=== PATIENT | male | born 1960 | race Caucasian/White ===

== ENCOUNTER → 2024-02-13 10:52 | Outpatient (REF) | payer MEDICARE, SELFPAY | LOC: HWRAD 10:52 | PROVIDERS: ATTENDING PHYSICIAN Family Medicine | DX: G89.29 Other chronic pain (principal); M54.41 Lumbago with sciatica, right side | CPT/HCPCS: 72110; 72220; 73502 ==

== ENCOUNTER → 2024-04-23 10:46 | Outpatient (REF) | payer MEDICARE, SELFPAY | LOC: RAD 10:46 | PROVIDERS: ATTENDING PHYSICIAN Family Medicine | DX: M25.571 Pain in right ankle and joints of right foot (principal) | CPT/HCPCS: 73610 ==

== ENCOUNTER 2024-04-25 15:05 | Day surgery (SDC) | payer MEDICARE, SELFPAY ==
[2024-04-25] VITALS (12 sets, daily range): BP systolic 101–139; BP diastolic 65–79; BMI 33.5
--- NOTE | 2024-04-25 10:34 | ED.GENMED ---
History of Present Illness
<Chaz Avina DO - Last Filed: 04/25/24 14:02>
General
Chief Complaint: Back Pain
Source: patient and spouse
Exam Limitations: none
Time Seen by Provider: 04/25/24 09:35
Nursing documentation reviewed up to this point in time: agreed with
History of Present Illness
History of Present Illness:
63-year-old male presents emergency department complaining of increased back pain and difficulty walking. He has pain going down his right leg. His right leg feels weaker. This is been ongoing for several months, but worse over the past 1 to 2
days. Today he is having trouble urinating.
Past History
<LILLIAN Gonzalez - Last Filed: >
Past History
ED Past Medical History: Asthma, HTN, Hypercholesterolemia and Other (Kidney stones, Diverticulitis, UTI); Negative NIDDM
ED Past Surgical History: Urological
Social History
Tobacco: Former smoker
Alcohol: None
Personal:
Living: with family
Employment: Employed (contractor)
Family History
Family History: Other
Review of Systems
<DO Javier Wray Last Filed: 04/25/24 14:02>
Review of Systems
Allergies reviewed?: Yes
All Other Systems: Not applicable
Constitutional: Reports no symptoms
EENT: Reports no symptoms
Respiratory: Reports no symptoms
Cardiac: Reports no symptoms
ABD/GI: Reports no symptoms
: Reports difficulty voiding
Musculoskeletal: Reports back pain
Skin: Reports no symptoms
Neurological: Reports weakness
Endocrine: Reports no symptoms
Hematologic/Lymphatic: Reports no symptoms
Psychiatric: Reports no symptoms
Phy Exam
<Chaz Avina DO - Last Filed: 04/25/24 14:02>
Physical Exam
Physical Exam:
Physical Exam
General: Afebrile, appears uncomfortable
Neck: supple. no meningeal signs. normal posterior pharynx
Heart: s1/s2 regular rate and rhythm, no murmur. equal radial
pulses.
HEENT: Pupils equal round reactive to light, EOMI
Lungs: no acute respiratory distress. clear bilaterally
Abdomen: normal bowel sounds. not tender. no CVAT
Neuro: alert and oriented. no focal neurological deficits cranial nerves II through XII intact
Skin: no rash
Psychiatric: well kept. interactive and cooperative
Extremities: no edema. no calf tenderness. negative homans. good distal pulses
Course
<Chaz Avina, DO - Last Filed: 04/25/24 14:02>
Orders/Labs/Results
Orders:
Orders
04/25/24 10:32
Bladder Scan- Treatment ONCE
IV Insert/Care/Rem.- Treatment PRN
04/25/24 11:28
Complete Blood Count/With Diff Urgent
Comprehensive Metabolic Panel Urgent
04/25/24 11:53
Lumbar Without Contrast MR [MR Lumbar Without Contrast] Urgent
Comment:
Reason For Exam: urinary retention, low back pain, unable to walk
OK for patient to be off Cardiac Monitoring for MRI: Yes
Recent pill cam endoscopy?: No
04/25/24 13:13
Morphine Sulfate 4 mg IV NOW STA
Ondansetron Injectable [Zofran] 4 mg IV NOW STA
04/25/24 13:47
Electrocardiogram (*1) Stat
Reason for Study: PreOp
Electrocardiogram (*1) Urgent
EKG- Treatment ONCE
Abnormal Lab Results
04/25/24
11:28
WBC 11.9 H 10^3/uL
(4.8-10.8)
Abs Immat Gran (auto) 0.1 H 10^3/uL
(0-0.05)
Absolute Neuts (auto) 8.9 H 10^3/uL
(1.4-6.5)
Absolute Monos (auto) 1.0 H 10^3/uL
(0.1-0.6)
Lymphocytes % 14.2 L %
(20.5-51.1)
BUN 33 H mg/dl
(9-20)
Creatinine 1.4 H mg/dL
(0.7-1.3)
Calcium 10.8 H mg/dl
(8.4-10.2)
Total Protein 6.0 L g/dl
(6.3-8.2)
04/25/24 11:28
04/25/24 11:28
Vital Signs
Initial and Last Documented VS:
Initial Vital Signs
Temp Pulse Resp BP Pulse Ox
98.0 F 79 16 116/72 96
04/25/24 09:34 04/25/24 09:34 04/25/24 09:34 04/25/24 09:34 04/25/24 09:34
Last Documented Vital Signs
Temp Pulse Resp BP Pulse Ox
98.0 F 78 10 110/65 97
04/25/24 09:34 04/25/24 12:00 04/25/24 12:00 04/25/24 12:00 04/25/24 12:00
<LILLIAN Gonzalez - Last Filed: >
Orders/Labs/Results
Orders:
Orders
04/25/24 10:32
Bladder Scan- Treatment ONCE
IV Insert/Care/Rem.- Treatment PRN
04/25/24 11:28
Complete Blood Count/With Diff Urgent
Comprehensive Metabolic Panel Urgent
04/25/24 11:53
Lumbar Without Contrast MR [MR Lumbar Without Contrast] Urgent
Comment:
Reason For Exam: urinary retention, low back pain, unable to walk
OK for patient to be off Cardiac Monitoring for MRI: Yes
Recent pill cam endoscopy?: No
04/25/24 13:13
Morphine Sulfate 4 mg IV NOW STA
Ondansetron Injectable [Zofran] 4 mg IV NOW STA
04/25/24 13:47
Electrocardiogram (*1) Stat
Reason for Study: PreOp
Electrocardiogram (*1) Urgent
EKG- Treatment ONCE
Abnormal Lab Results
04/25/24
11:28
WBC 11.9 H 10^3/uL
(4.8-10.8)
Abs Immat Gran (auto) 0.1 H 10^3/uL
(0-0.05)
Absolute Neuts (auto) 8.9 H 10^3/uL
(1.4-6.5)
Absolute Monos (auto) 1.0 H 10^3/uL
(0.1-0.6)
Lymphocytes % 14.2 L %
(20.5-51.1)
BUN 33 H mg/dl
(9-20)
Creatinine 1.4 H mg/dL
(0.7-1.3)
Calcium 10.8 H mg/dl
(8.4-10.2)
Total Protein 6.0 L g/dl
(6.3-8.2)
04/25/24 11:28
04/25/24 11:28
Vital Signs
Initial and Last Documented VS:
Initial Vital Signs
Temp Pulse Resp BP Pulse Ox
98.0 F 79 16 116/72 96
04/25/24 09:34 04/25/24 09:34 04/25/24 09:34 04/25/24 09:34 04/25/24 09:34
Last Documented Vital Signs
Temp Pulse Resp BP Pulse Ox
98.0 F 78 10 110/65 97
04/25/24 09:34 04/25/24 12:00 04/25/24 12:00 04/25/24 12:00 04/25/24 12:00
<Chaz Avina, DO - Last Filed: 04/25/24 14:02>
MDM/Problems Addressed
Differential Diagnosis Includes:
Cauda equina, lumbosacral disc retrusion
MDM/Problems Addressed:
63-year-old male with lumbosacral disc retrusion, intractable back pain. Discussed with neurosurgery, who will operate after medical clearance.
Chronic conditions affecting care: HTN
Acute Exacerbation and/or Progression of Chronic Illness: HTN
<Chaz Avina, DO - Last Filed: 04/25/24 14:02>
*Radiology
Radiology exam reviewed: radiology read reviewed (MRI shows large L5-S1 lumbosacral disc protrusion, no cauda equina)
*Pulse Oximetry
Patient hypoxic: no
*EKG
Interpreted by ED Provider?: Yes
EKG Intrepretation Date: 04/25/24
EKG Intrepretation Time: 13:56
Interpretation: abnormal
Comparison EKG: changes noted
Heart Rate: 75
Rate: normal
Rhythm: sinus
Lagrange: normal axis
Interval: normal interval
QRS Pattern: right bundle branch block
Ischemia: no ischemia
*Pastry Finisher Interpretation
Rate: Pastry Finisher- N/A
*Critical Care Note
Total Time (30-74mins, 75-104mins- exclusive of procedures): Not Applicable
Data Reviewed
Review of Other/Old Records Reveals: Radiology Studies (Prior MRI at [facility] shows L5-S1 right paracentral disc protrusion)
<Chaz Avina, DO - Last Filed: 04/25/24 14:02>
Patient Management
Social determinants of health affecting care: Living situation
Discussion with other providers: Hospitalist and [employer] (Neurosurgery Dr. Cunningham)
Escalation/DeEscalation of care consider admission/obs:
Admit indicated
ED Attending Note
<LILLIAN Gonzalez - Last Filed: >
-
Portions of this chart may have been created with voice recognition software.� Occasional wrong word or��sound alike� substitutions may have occurred due to the inherent limitations of voice recognition software.
Discharge Plan
Departure
Patient Disposition: Admit
Date of Disposition: 04/25/24
Time of Disposition: 13:39
Admit to: Med/Surg
Presentation/result/management discussed w/ accepting MD/DO: Hospitalist
Patient with high blood pressure during this ER visit?: Yes
Condition: Fair
Discharge Problem:
Protrusion of intervertebral disc of lumbosacral region
Prescriptions:
No Action
clonazepam 0.5 MG tablet
0.5 mg PO Q6HPRN PRN (Reason: anxiety)
duloxetine 60 MG capsule,delayed release(DR/EC)
60 mg PO DAILY
Referrals:
Billie Shukla MD [Family Provider] -
Interventions
Interventions:
*Risk Screen - Suicide Last Done: 04/25/24 09:34
*General Assessment Last Done: 04/25/24 09:34
*Neglect/Abuse Screening Last Done: 04/25/24 09:34
ED- Fall Risk Assessment Last Done: 04/25/24 11:46
*ED COVID-19 Vaccine History Last Done: 04/25/24 09:34
ED-Musculoskeletal Assessment Last Done: 04/25/24 11:35
Discharge Date and Time
Print Language: [facility]
[2024-04-25 11:43] LABS: % Basophils 0.4 % (0-2); % Eosinophils 1.3 % (0-6); % Immature Granulocytes 0.4 % (0-0.5); % Lymphocytes 14.2 % (20.5-51.1); % Monocytes 8.7 % (1.7-9.3); Absolute Basophils 0.1 10^3/uL (0-0.2); Absolute Eosinophils 0.2 10^3/uL (0-0.7); Absolute Immature Granulocytes 0.1 10^3/uL (0-0.05); Absolute Lymphocytes 1.7 10^3/uL (1.2-3.4); Absolute Neutrophils 8.9 10^3/uL (1.4-6.5); Hematocrit 47.9 % (39.0-52.0); Mean Corp Hgb Conc. 33.4 g/dL (33.0-37.0); Mean Corpuscular Hgb 30.1 pg (27.0-31.0); Nucleated Red Blood Cells % 0 % (-); Platelet Count 262 10^3/uL (130-400); Red Blood Cell Count 5.32 10^6/uL (4.70-6.10); Red Cell Dist. Width 13.4 % (11.5-14.5); White Blood Cell Count 11.9 10^3/uL (4.8-10.8)
[2024-04-25 12:02] LABS: ALT (SGPT) 25 U/L (0-50); AST (SGOT) 25 U/L (17-59); Albumin 3.9 g/dl (3.5-5.0); Alkaline Phosphatase 83 U/L (38-126); Blood Urea Nitrogen 33 mg/dl (9-20); Calcium 10.8 mg/dl (8.4-10.2); Carbon Dioxide 27 mmol/L (22-30); Chloride 105 mmol/L (98-107); Estimated Creatinine Clearance 65 ml/min; Glucose 99 mg/dl (70-99); Potassium 4.6 mmol/L (3.5-5.1); Sodium 142 mmol/L (135-145); Total Bilirubin 1.1 mg/dl (0.2-1.3); eGFR 55.78
[2024-04-25] MEDS: ZOFRAN 4 MG IV (13:30)
[2024-04-25] MEDS: MORPHINE SULFATE 4 MG IV ×3 (13:30→22:14)
--- NOTE | 2024-04-25 14:11 | HPS.HSE ---
Addendum entered and electronically signed by Caitie Bryan MD 04/25/24 20:30:
Discussed with cardiology who stated that incomplete right bundle branch block was present previously. No further workup needed. Patient can proceed to surgery.
Original Note:
Family Physician
-
Family Physician: Billie Shukla
Chief Complaint
-
Lumbar back pain unable to urinate
History of Present Illness
63-year-old male complaining of increased back pain with radiation to his right lateral leg leg to ankle and difficulty walking. He reports this has been ongoing for several months but worsened over the past 1 to 2 days. His states he is been
using a walker at home for the past few weeks. He does reports not being able to void since last night. He had bladder scan in the ER showing 324 cc. He denies dysuria, frequency, flank pain, fever, chills. He denies headache, sore throat,
fever, chills, chest pain, palpitations, shortness breath, cough, abdominal pain, nausea, vomiting, diarrhea.
He has past medical history asthma mild, ex-smoker, HTN, HLD, moderate left ventricular hypertrophy, anxiety, depression, seasonal allergies, renal calculi, obesity
Medical History
Past Medical History
Past Medical History: Reports Other
Additional Past Medical History:
asthma
ex-smoker
HTN
HLD,
anxiety
depression
seasonal allergies
renal calculi
left ventricular hypertrophy
Past Surgical History: Reports Other
Additional Past Surgical History:
Tonsillectomy
Herniated testicle repair
Kidney stone removal x 7
Social History
Tobacco: Former Smoker
Alcohol: None
Drug: None
Personal:
Living: With Family
Employment: Retired (drywall installer)
Family History
Family History: Other (Mother old age history of hypertension, depression father age 70 [place])
Allergies / Home Medications
Allergies reflects when Allergies were last updated in [facility].
Home Medications with original date entered in [facility]
Allergy/Medication List:
Allergies
Allergy/AdvReac Type Severity Reaction Status Date / Time
environmental Allergy congestion Uncoded 11/02/20 18:52
Home Medications
clonazepam 0.5 mg tablet 0.5 mg PO BID 08/25/18
duloxetine 60 mg capsule,delayed release 120 mg PO DAILY 08/25/18
acetaminophen 325 mg tablet (Tylenol) 650 mg PO Q4HPRN PRN mild pain 04/25/24
amlodipine 5 mg tablet 5 mg PO HS 04/25/24
atorvastatin 20 mg tablet (Lipitor) 20 mg PO DAILY 04/25/24
bupropion HCl 200 mg tablet,12 hr sustained-release (Wellbutrin SR) 200 mg PO DAILY 04/25/24
metoprolol succinate 25 mg tablet,extended release 24 hr (Toprol XL) 37.5 mg PO DAILY 04/25/24
Review of Systems
-
History Source: Patient and Family ( at bedside)
A 12 point ROS was completed and negative except as noted: Yes
Constitutional: Denies Fever, Fatigue or Chills
EENT: Denies Sore Throat or Runny Nose
Respiratory: Denies Cough or Trouble Breathing
Cardiac: Denies Chest Pain, Diaphoresis, Palpitations or Syncope
Abdomen/GI: Denies Abdominal Pain, Nausea, Vomiting, Diarrhea, Constipated, Bloody Stools or Black Stools
: Reports Difficulty Voiding (Urine retention since last evening 04/24/2024)
Musculoskeletal: Reports Other (Lower lumbar back pain radiating down right lateral thigh to ankle sensation intact motor movement intact 5 out of 5 bilateral); Denies Joint Pain or Edema
Skin: Denies Itching or Rash
Neurological: Denies Dizzy, Headache, Weakness or Numbness
Endocrine: Reports No Symptoms
Hematologic/Lymphatic: Reports No Symptoms
Psych: Reports Calm
Physical Exam
Vital Signs
Vital Signs
Temp Pulse Resp BP Pulse Ox
98.0 F 78 10 110/65 97
04/25/24 09:34 04/25/24 12:00 04/25/24 12:00 04/25/24 12:00 04/25/24 12:00
Physical Exam
General: Comfortable, Conversant and Obese; No Fever or Chills
HEENT: NormoCephalic, Anicteric, Moist mucous membranes, PERRLA, [place] Conjunctivae and No Ptosis
Respiratory: Clear; No Wheezes, Rales or Rhonchi
Cardiac: S1/S2 and Regular Rhythm; No Murmur, Rub, Gallop or Peripheral Edema
Breast: Deferred by me
GI: Soft, Non Tender, Non Distended, Normal Bowel Sounds and No Hepatosplenomegaly
Rectal: Deferred by Provider
Genito-urinary: No costovertebral tender
Musculoskeletal: No Clubbing, No Cyanosis, No Edema and Other (Lower lumbar back pain radiating down right lateral thigh to ankle sensation intact motor movement intact 5 out of 5 bilateral)
Skin: Warm and Dry; No Rash or Jaundice
Neuro: AO x 3, No Motor Deficits, Nonfocal/grossly intact, Cranial Nerves Intact and No Sensory Deficits; No Slurred Speech, Facial Droop or Tremors
Psych: Calm
Laboratory Results
-
04/25/24 11:28
04/25/24 11:28
Laboratory Results
Total Bilirubin 1.1 mg/dl (0.2-1.3) 04/25/24 11:28
AST 25 U/L (17-59) 04/25/24 11:28
ALT 25 U/L (0-50) 04/25/24 11:28
Alkaline Phosphatase 83 U/L (38-126) 04/25/24 11:28
Impression/Plan
-
Impression/plan:
Admit to MedSurg
#Intractable back pain 2/2 large right central disc protrusion with S1 nerve root impingement
-Consult neurosurgery
-N.p.o. after midnight for the OR tomorrow
-IV morphine as needed, IV Zofran
-PT/OT/case management consult
MRI lumbar spine: L5-S1, a large right central disc protrusion causing moderate impingement on the traversing right S1 nerve root in the lateral recess
#Urinary retention likely secondary to S1 nerve root impingement versus BPH
-Postvoid bladder scan 324 cc
-Will insert Victoria catheter due to urine retention
Creat 1.4 prior baseline 1.3 in 2020
-IV NSS
-Check UA, [employer]
#Incomplete RBBB likely new
#Hx left ventricular hypertrophy
-HR 75 bpm, no chest pain
-Patient follows with [facility]
-Recommend follow-up with [facility] for possible new RBBB
EKG: NSR 75 bpm, QTc 464 MS, incomplete RBBB new since 2014
2D echo 06/24/2022: EF 65 to 70%, moderate LVH, trace AR, pulm arterial pressure 20-25 mmHg
#HTN-benign
BP 110/65
-Continue amlodipine 5 mg at bedtime with hold parameters, Toprol XL 37.5 mg a.m. with hold parameters
#HLD
-Continue Lipitor 20 mg daily
#Anxiety/Depression
-Continue Wellbutrin 200 mg daily, clonazepam 0.5 mg twice daily, duloxetine 120 mg daily
#Asthma-mild was were conduced from [facility]
# Ex-smoker
-Quit 40 years ago
#Obesity due to excess calorie consumption�BMI 34.3
-Affects all aspects of care
-Weight loss recommended
-Low-fat diet
Other medical history:
Seasonal allergies
renal calculi with lithotripsy x 7
DVT prophylaxis
Full code
--- NOTE | 2024-04-25 15:01 | W.PN.UPDATE ---
Update Note
Progress Note Update
This is an addendum to the H&P written by Tracy Godinez on 04/25/2024. Patient seen and examined independently with [employer].
63-year-old male past medical history of asthma, hypertension, hypercholesteremia, kidney stones, presenting with increased back pain with pain radiating down right leg with weakness ongoing for months and difficulty ambulating as well as difficulty
urinating.
Lumbar MRI shows large right central disc protrusion causing moderate impingement on the transversing right S1 nerve root in the lateral recess. Labs show mild DANE likely related to urinary retention from disc herniation. Bladder scan showed 324
cc of urine. Patient for surgery tomorrow.
Victoria catheter to be placed. Check UA. Gentle IV fluids. EKG shows incomplete right bundle branch block which is new although patient without any cardiac complaints. N.p.o. past midnight. Neurosurgery consulted for surgery tomorrow. Tylenol,
morphine for pain.
[2024-04-25 15:46] LABS: Urine Albumin Trace (Neg - Trace); Urine Bilirubin 1+ (Negative); Urine Character Very Cloudy (Clear); Urine Color Yellow; Urine Glucose Negative (Negative); Urine Ketone Trace (Negative); Urine Leukocyte 1+ (Negative); Urine Nitrite Positive (Negative); Urine Occult Blood 4+ (Negative); Urine Urobilinogen Negative (Neg - 1+)
[2024-04-25 15:58] LABS: Urine Calcium Oxalate Crystals Present; Urine Red Blood Cell 90-100 /HPF (0-2); Urine Squamous Cell 0-2 /LPF (Few); Urine White Cell 0-2 /HPF (0-5)
[2024-04-25 15:59] LABS: Urine Bacteria Many (Negative)
--- NOTE | 2024-04-25 17:18 | CON.NS ---
Consultation
-
Date/Time Consultation Performed: 04/25/2024; 17:20
Performing Provider: Marisa
Chief Complaint
History of Present Illness
This is a neurosurgical consultation on a 63-year-old gentleman who presents with several month history of significant right lower extremity radiculopathy. He was initially evaluated by his primary care doctor, MRI was ordered, and he underwent a
course of physical therapy which she was unable to tolerate. He also reports that he and epidural steroid injection to the spine 1 week prior, with minimal pain relief.
He presented as he had worsening pain overnight, and difficulty ambulating and bearing weight on the right leg. He was also reported to have acute urinary retention of 325 mL. Given this, he had a new MRI scan which demonstrated persistent, but
slightly larger right L5-S1 disc herniation.
Reports the pain primarily starts in his right buttock area, radiates down the posterior aspect of his right leg, right calf, and into the lateral aspect of his right foot.
Review of Systems
-
10 point review of systems was performed which includes constitutional, ENT, cardiovascular, respiratory, GI, , endocrinologic, hematologic, neurologic, musculoskeletal, and was negative, except for stated in HPI.
Medication and Allergies
Home Medications
Home Medications
�Medication �Instructions �Recorded
clonazepam 0.5 mg tablet 0.5 mg PO BID 08/25/18
duloxetine 60 mg capsule,delayed 120 mg PO DAILY 08/25/18
release
acetaminophen 325 mg tablet 650 mg PO Q4HPRN PRN mild pain 04/25/24
(Tylenol)
amlodipine 5 mg tablet 5 mg PO HS 04/25/24
atorvastatin 20 mg tablet (Lipitor) 20 mg PO DAILY 04/25/24
bupropion HCl 200 mg tablet,12 hr 200 mg PO DAILY 04/25/24
sustained-release (Wellbutrin SR)
metoprolol succinate 25 mg 37.5 mg PO DAILY 04/25/24
tablet,extended release 24 hr
(Toprol XL)
Allergies
Allergies
Allergy/AdvReac Type Severity Reaction Status Date / Time
environmental Allergy congestion Uncoded 11/02/20 18:52
Physical Exam
-
Exam:
Awake, alert, no apparent distress.
Cranial nerves II through XII are gross intact
Motor: 5/5 strength bilaterally lower extremities, except 4/5 strength in right hamstring.
Sensation to light touch intact bilaterally in upper and lower extremities.
Head is normocephalic atraumatic
Neck is supple
breathing nonlabored
Cardiac: Regular rate and pulse.
Abdomen is soft
Extremities: Warm and dry
Problems
-
Problem Status Onset Code
Protrusion of intervertebral disc of lumbosacral region M51.27
Assessment / Plan
-
This is a 63-year-old gentleman that presents with increased back pain, with worsening right lower extremity radiculopathy now with bladder scan demonstrating urinary retention of 324 cc.
MRI of the lumbar spine performed today was reviewed, and compared with the previous MRI performed at [facility] on 04/10/2024. There is persistent, but slightly larger right L5-S1 disc herniation with severe compression of the right S1
nerve root. He is trialed pain control, physical therapy, and epidural steroid injection without significant relief.
He is unable to ambulate at home and bear weight on the right leg.
Extensive discussion was held with patient, and family bedside. Given his intractable right lower extremity symptoms, and MRI findings, he is deemed a candidate for right L5-S1 microdiscectomy.
I thoroughly discussed the indications for the surgery, nonoperative options, risks, benefits, and risks include, but are not limited to bleeding, infection, injury to arteries, veins, nerves, CSF leak, disc reherniation, need for further surgery in
the future, failure to improve symptoms, worsening of symptoms. He and his family expressed understanding of this, and gave consent to proceed. Patient is made n.p.o. after midnight. Plan to proceed to the operating room tomorrow a.m.
Please ensure patient has appropriate medical clearance for anesthesia for tomorrow.
[2024-04-25] MEDS: NSS 1000 IV (18:16)
--- NOTE | 2024-04-25 18:43 | W.PN.UPDATE ---
Update Note
Progress Note Update
Patient voiding on own to 50 mL with postvoid residual 142 at 1543. Victoria was not placed in ER. Will hold Victoria catheter and continue with bladder scan protocol
[2024-04-25] MEDS: HEPARIN 5000 UNITS SC (19:58)
[2024-04-25] MEDS: KLONOPIN 0.5 MG PO (19:58)
[2024-04-25] MEDS: NORVASC 5 MG PO (22:20)
[2024-04-26] VITALS (21 sets, daily range): BP systolic 88–131; BP diastolic 46–79; PULSE 83; O2SAT 96
[2024-04-26] MEDS: MORPHINE SULFATE 4 MG IV (04:28)
--- NOTE | 2024-04-26 09:53 | OR.RPT ---
Operative Report
Operative Report
Date of procedure: 04/26/2024
Surgeon: Yuli Cunningham MD
Dictated by: Yuli Cunningham MD
Procedure:
1. Right L5-S1 microdiscectomy
2. Utilization of intraoperative fluoroscopy
3. Utilization of microscope for microdissection
Preoperative diagnosis: Right L5-S1 disc herniation
Postoperative diagnosis: Same
Boring Machine Set Up Operator Jig:
Anesthesiologist: Renee
Types of anesthesia:
1. General
2. Local
Estimated blood loss: 30 cc
Specimens: None
Intraoperative findings: Right focal L5-S1 disc herniation with compression of the right S1 nerve root within the axilla.
Complications: None
Disposition: Extubated and transferred to the PACU and then to the floor stable condition.
Indications for procedure:
This is a 63-year-old gentleman who presented with severe onset of right lower extremity radiculopathy. He was diagnosed with a right L5-S1 disc herniation several weeks ago, after suffering with severe radicular symptoms x 2 months. He trialed
physical therapy, as well as undergone a epidural steroid injection without any significant relief. He presents to the hospital with difficulty with ambulating and standing, and inability to perform his activities of daily living. He had a
follow-up MRI scan which demonstrated a larger right L5-S1 disc herniation.
He did report some difficulty with urination was noted to be retaining urine with approximate 324 cc in his bladder. Given his intractable pain, and imaging demonstrating increase in his right L5, S1 discrimination, he was deemed a candidate for
microdiscectomy.
Procedure in detail: Patient seen the preoperative holding area where consents were obtained. All Shannon questions or concerns at the patient and the right side were answered addressed. Patient was Joyce to the operating room and induced under
general attitude to anesthesia. Patient was then carefully positioned from the supine position to the prone position onto the Teddy table. Special care was taken to ensure that all pressure points including his eyes, chin, bilateral ulna, chest,
groin, knees were appropriately padded. Following this time sensory was placed over the gluteal fold along sacral spine was then shaved. Preoperative x-rays were taken to localize the L5-S1 level. This area was then prepped and draped in standard
surgical fashion. After appropriate timeout was obtained, local anesthetic was then infiltrated to the marked incision.
Using template, an incision was made through the skin and Bovie electrocautery was utilized to dissect down to the lumbodorsal fascia. The lumbodorsal fascia was then dissected and opened on the right side of the spinous processes and subperiosteal
dissection was then carried out using Bovie electrocautery. The lamina on the right side of L5, and S1 was dissected, and the plan for forward dissector was utilized and intraoperative x-rays were utilized to localize and confirmed that this was
the L5-S1 level. Following this the Chow retractors were placed, the microscope was brought in for additional dissection.
Using the [employer] match head bur, a laminoforaminotomy was made removing the inferior aspect of the L5 lamina, and the superior aspect of the S1 lamina. The ligamentum flavum was encountered, this was removed using Kerrison punch rongeur's. At
this point epidural fat was encountered, as well as the lateral aspect of the thecal sac, and the S1 nerve root. Using a [place] 4 dissector, careful dissection was then carried out lateral to the S1 nerve root, and a large blisterlike bulge was
palpated. This was then opened using an 11 blade, revealing multiple free fragments of this material. A large fragment was also teased out using pituitary rongeur's. At this point, as outpatient curette was utilized to remove any additional disc
material medially. The nerve root appeared to be significantly lax at this point. Using pituitary rongeur's, additional freed this material within the superficial aspect of the disc base was also encountered and this was removed. At this point,
there is no evidence of additional material, and the nerve appeared to be significantly decompressed. The wound was then thoroughly irrigated with irrigation, and Surgiflo hemostatic material was then placed within the epidural space.
Local anesthetic was infiltrated to the subfascial musculature, retractors were removed. The fascia was then reapproximated using interrupted 0 Vicryl sutures. The subcutaneous fatty tissue was reapproximate using an additional layer of 2-0 Vicryl
sutures in interrupted fashion. And lastly, the dermis and epidermis was then reapproximated using interrupted inverted 3-0 Vicryl sutures. Mastisol, and Steri-Strips were utilized to further reinforce the skin closure. The wound was then dressed
using Telfa and Tegaderm. Patient was then carefully positioned for the prone position to the supine position. He was then extubated and transferred to the PACU in stable condition. All needle sponge counts were correct at the end the procedure.
No complications were encountered. The patient's was made aware of the intraoperative, as well as key and postoperative course expected, to which she expressed understanding.
--- NOTE | 2024-04-26 11:28 | W.PN.HOSP.TC ---
Today's Communication/Plan
-
Resume diet
PT/OT
Continuous pulse ox
Assessment / Plan
Assessment / Plan
Gen-sleepy but arousable, NAD, obese
HEENT-NC, AT, anicteric, clear oral mm
Neck-supple
CV-reg, no M, +S1/S2
Lungs-clear B/L
Abd-soft, NT, ND
Ext-no edema
Musculoskeletal-no cyanosis, clubbing
Skin-warm and dry
Acute lumbar radiculopathy -presentation with pain down the right leg. Etiology is herniated L5-S1 vertebral disc as noted on MRI. Underwent successful microdiscectomy 04/26 by neurosurgery.
Resume diet today. PT/OT.
Slow to wake up from anesthesia today, suspect underlying BRENNAN. Continuous pulse oximetry ordered. Will need outpatient sleep study if not already.
Intractable pain syndrome -due to above. Neurosurgery recommends Medrol Dosepak and muscle relaxants, analgesics postop. Neurosurgery is okay with discharge in the next 24 hours. Outpatient follow-up.
Acute urinary retention -PVR 324 cc in the emergency room. Repeat bladder scan was 153 mL. Did not require Victoria catheter.
Urinalysis does show hematuria. White blood cell count is 0. Will need outpatient follow-up with urology.
Prerenal azotemia -mild elevation of BUN and creatinine noted. Labs pending for today.
Essential hypertension -controlled.
Hyperlipidemia -atorvastatin.
Anxiety/depression -he is on clonazepam, Wellbutrin, duloxetine at home.
Obesity due to excess calories
Full code
Anticipated Discharge: Within 24 hours
Subjective/Interval History
-
Date of Service: April 26, 2024
Patient seen and examined in the recovery room. Still somewhat groggy from anesthesia.
Objective Data
-
Labs:
Laboratory Results
04/26/24
06:00
WBC Pending
Hgb Pending
Hct Pending
Plt Count Pending
Sodium Pending
Potassium Pending
Chloride Pending
Carbon Dioxide Pending
BUN Pending
Creatinine Pending
Glucose Pending
Calcium Pending
Total Bilirubin Pending
AST Pending
ALT Pending
Alkaline Phosphatase Pending
Vital Signs:
Vital Signs
Temp Pulse Resp BP Pulse Ox
97.4 F 85 17 107/74 97
04/26/24 10:42 04/26/24 11:00 04/26/24 11:00 04/26/24 11:00 04/26/24 11:00
I&O
04/25/24 04/26/24 04/27/24
06:59 06:59 06:59
Intake Total 800 / 800
Output Total 400 / 400
Balance 400 / 400
Review of Systems
-
History Source: Patient
All other systems: Reviewed and negative
[2024-04-26] MEDS: NSS 1000 IV (11:49)
[2024-04-26 12:08] LABS: % Basophils 0.2 % (0-2); % Eosinophils 0.2 % (0-6); % Immature Granulocytes 0.5 % (0-0.5); % Lymphocytes 5.6 % (20.5-51.1); % Monocytes 2.2 % (1.7-9.3); % Neutrophils 91.3 % (42.2-75.2); Absolute Immature Granulocytes 0.1 10^3/uL (0-0.05); Absolute Lymphocytes 0.5 10^3/uL (1.2-3.4); Absolute Monocytes 0.2 10^3/uL (0.1-0.6); Absolute Neutrophils 8.8 10^3/uL (1.4-6.5); Hematocrit 45.6 % (39.0-52.0); Hemoglobin 14.8 g/dL (13.0-18.0); Mean Corp Hgb Conc. 32.5 g/dL (33.0-37.0); Mean Corpuscular Volume 89.2 fL (80.0-94.0); Mean Platelet Volume 9.3 fL (7.4-10.4); Nucleated Red Blood Cells % 0 % (-); Platelet Count 240 10^3/uL (130-400); Red Blood Cell Count 5.11 10^6/uL (4.70-6.10); Red Cell Dist. Width 13.4 % (11.5-14.5); White Blood Cell Count 9.7 10^3/uL (4.8-10.8)
[2024-04-26] MEDS: NSS IV (12:22)
[2024-04-26] MEDS: KLONOPIN PO (12:50)
[2024-04-26] MEDS: HEPARIN SC (12:50)
--- NOTE | 2024-04-26 13:02 | SUR.PHASEI ---
patient in pacu delayed awakening - received narcan in OR - airway out in pacu - sleeps continuously if undisturbed, vss, with O2 sats usually 92 - 97%. some drops to 88% - Dr Rubin updated - continuous pulse oximetry ordered for floor. When
awake - follows commands, flat affect, generalized weakness,denies pain. labs drawn that were not drawn at 6am and sent. updated. left hand cold on arrival - strong radial pulse, warmed with warm blanket.
--- NOTE | 2024-04-26 13:07 | PTCARENOTE ---
Patient received from PACU in bed; IVF infusing; Surgical site medial lower back clean, dry and intact; Patient drowsy but awakens to voice and tactile stimulation; Spouse at bedside; Continuous pulse ox in place, oxygen saturation 93-94% on 3L
nasal cannula; Bilateral radial pulse +2 to palpation, bilateral pedal pulse +2 to palpation; Weak hand grasp bilaterally; Bilateral plantar flexion and dorsiflexion weak; Patient denies numbness and/or tingling to all extremities; Patient states
pain is mild and tolerable for him; Patient denies nausea/vomiting; Call leone within reach; Bed in lowest position, wheels locked; Assessment ongoing
[2024-04-26 13:16] LABS: Hepatitis C Antibody Negative (Negative)
[2024-04-26] MEDS: WELLBUTRIN SR (12 hour sustained release) PO (13:20)
[2024-04-26] MEDS: TOPROL XL PO (13:20)
[2024-04-26] MEDS: CYMBALTA DELAYED RELEASE PO (13:20)
[2024-04-26] MEDS: LIPITOR PO (13:20)
[2024-04-26 13:53] LABS: ALT (SGPT) 22 U/L (0-50); AST (SGOT) 26 U/L (17-59); Albumin 3.9 g/dl (3.5-5.0); Alkaline Phosphatase 88 U/L (38-126); Blood Urea Nitrogen 34 mg/dl (9-20); Carbon Dioxide 18 mmol/L (22-30); Chloride 106 mmol/L (98-107); Estimated Creatinine Clearance 69 ml/min; Glucose 103 mg/dl (70-99); Potassium 4.7 mmol/L (3.5-5.1); Sodium 140 mmol/L (135-145); Total Bilirubin 0.8 mg/dl (0.2-1.3); Total Protein 5.8 g/dl (6.3-8.2); eGFR > 60.00
--- NOTE | 2024-04-26 14:26 | CM ---
Patient seen resting, initial assessment completed by bedside. Patient resides in a multiple story home, one step to enter. Patient has a walker and cane at home, denies VN or SNF history. Patient PCP Billie Shukla, pharmacy [facility]
[place]. Patient confirms prescription coverage through [facility]. CM will follow for PT/OT recommendations for VN needs.
Plan; home with , watch for VN needs upon discharge.
[2024-04-26] MEDS: ANCEF 5 IV ×2 (15:38→23:32)
[2024-04-26] MEDS: TYLENOL 1000 MG PO ×2 (15:39→21:00)
[2024-04-26] MEDS: ROXICODONE 5 MG PO (18:10)
[2024-04-26] MEDS: HEPARIN 5000 UNITS SC (20:48)
[2024-04-26] MEDS: COLACE 100 MG PO (20:48)
[2024-04-26] MEDS: SENOKOT 17.2 MG PO (20:48)
[2024-04-26] MEDS: KLONOPIN 0.5 MG PO (20:48)
[2024-04-26] MEDS: NORVASC 5 MG PO (21:00)
[2024-04-27] MEDS: NSS 1000 IV (01:30)
[2024-04-27] MEDS: TYLENOL 1000 MG PO ×2 (03:34→09:12)
[2024-04-27 03:55] VITALS: BP 135/78
[2024-04-27 07:47] VITALS: BP 167/91
--- NOTE | 2024-04-27 08:13 | W.PN.HOSP.TC ---
Today's Communication/Plan
-
Discharge
Assessment / Plan
Assessment / Plan
Gen-sleepy but arousable, NAD, obese
HEENT-NC, AT, anicteric, clear oral mm
Neck-supple
CV-reg, no M, +S1/S2
Lungs-clear B/L
Abd-soft, NT, ND
Ext-no edema
Musculoskeletal-no cyanosis, clubbing
Skin-warm and dry
Acute lumbar radiculopathy -presentation with pain down the right leg. Etiology is herniated L5-S1 vertebral disc as noted on MRI. Underwent successful microdiscectomy 04/26 by neurosurgery. PT recommends home therapy.
Intractable pain syndrome -due to above. Neurosurgery recommends Medrol Dosepak and muscle relaxants, analgesics postop. Neurosurgery is okay with discharge today. Outpatient follow-up.
Acute urinary retention -PVR 324 cc in the emergency room. Repeat bladder scan was 153 mL. Did not require Victoria catheter.
Urinalysis does show hematuria. White blood cell count is 0. He does have a urologist, Dr. Buck. Discussed with patient to follow-up as an outpatient for evaluation of hematuria. He does have a history of nephrolithiasis. Last episode was 3
years ago.
Prerenal azotemia -mild elevation of BUN and creatinine noted. Labs pending for today.
Essential hypertension -controlled.
Hyperlipidemia -atorvastatin.
Anxiety/depression -he is on clonazepam, Wellbutrin, duloxetine at home.
BRENNAN -spoke with , patient did have a CPAP machine but it was removed due to noncompliance. He was scheduled for repeat sleep study but ended up in the hospital. Recommend rescheduling. Discussed with .
Obesity due to excess calories
Full code
Dispo - medically stable for discharge home today with home care. Follow-up as outpatient. Updated on the phone. All questions answered.
32-minute spent in discharge process.
Anticipated Discharge: Today
Subjective/Interval History
-
Date of Service: April 27, 2024
Patient seen and examined. Feels much better. Denies radicular pain. Mild soreness of his lower back. No complaints.
Objective Data
-
Labs:
Laboratory Results
04/27/24
05:32
WBC Pending
Hgb Pending
Hct Pending
Plt Count Pending
Sodium Pending
Potassium Pending
Chloride Pending
Carbon Dioxide Pending
BUN Pending
Creatinine Pending
Glucose Pending
Calcium Pending
Total Bilirubin Pending
AST Pending
ALT Pending
Alkaline Phosphatase Pending
Vital Signs:
Vital Signs
Temp Pulse Resp BP Pulse Ox
98.2 F 92 20 167/91 98
04/27/24 07:47 04/27/24 07:47 04/27/24 07:47 04/27/24 07:47 04/27/24 07:47
I&O
04/26/24 04/27/24 04/28/24
06:59 06:59 06:59
Intake Total 800 / 800 100 / 100
Output Total 400 / 400 975 / 975
Balance 400 / 400 -875 / -875
Review of Systems
-
History Source: Patient
All other systems: Reviewed and negative
--- NOTE | 2024-04-27 08:19 | W.DS.TRANS ---
DC Summary - Mac Developer
-
Discharge Instructions:
Discharge Diagnosis/Procedures Lumbar radiculopathy, hematuria
Diet Regular
Activity As tolerated
Driving Restrictions As prior to admission
Bathing Restrictions None
Instructions:
Stand-Alone Forms:
Changes to Home Medications: No
Discharge Medications:
DC Medications w/original date entered in [employer]
clonazepam 0.5 mg tablet 0.5 mg PO BID Mental Health/Anxiety 08/25/18
duloxetine 60 mg capsule,delayed release 120 mg PO DAILY Mental Health/Anxiety 08/25/18
acetaminophen 325 mg tablet (Tylenol) 650 mg PO Q4HPRN PRN mild pain 04/25/24
amlodipine 5 mg tablet 5 mg PO HS Blood Pressure 04/25/24
atorvastatin 20 mg tablet (Lipitor) 20 mg PO DAILY High Cholesterol 04/25/24
bupropion HCl 200 mg tablet,12 hr sustained-release (Wellbutrin SR) 200 mg PO DAILY Mental Health/Anxiety 04/25/24
metoprolol succinate 25 mg tablet,extended release 24 hr (Toprol XL) 37.5 mg PO DAILY Heart Disease/Condition 04/25/24
cyclobenzaprine 10 mg tablet 10 mg PO Q8HPRN PRN muscle spasms #15 tabs 04/27/24
docusate sodium 100 mg capsule 100 mg PO BID #0 caps 04/27/24
methylprednisolone 4 mg tablets in a dose pack (Medrol ([place])) See Rx Instructions PO .COMPLEX #21 ea 04/27/24
Home Medication Changes
Pending Results: No
[2024-04-27 08:42] LABS: % Basophils 0.3 % (0-2); % Eosinophils 0.1 % (0-6); % Immature Granulocytes 0.7 % (0-0.5); % Lymphocytes 6.4 % (20.5-51.1); % Monocytes 6.9 % (1.7-9.3); % Neutrophils 85.6 % (42.2-75.2); Absolute Immature Granulocytes 0.1 10^3/uL (0-0.05); Absolute Lymphocytes 0.9 10^3/uL (1.2-3.4); Absolute Neutrophils 11.8 10^3/uL (1.4-6.5); Hematocrit 40.8 % (39.0-52.0); Hemoglobin 14.1 g/dL (13.0-18.0); Mean Corp Hgb Conc. 34.6 g/dL (33.0-37.0); Mean Corpuscular Volume 86.8 fL (80.0-94.0); Nucleated Red Blood Cells % 0 % (-); Red Cell Dist. Width 13.2 % (11.5-14.5); White Blood Cell Count 13.8 10^3/uL (4.8-10.8)
[2024-04-27] MEDS: COLACE 100 MG PO (09:10)
[2024-04-27] MEDS: CYMBALTA DELAYED RELEASE 120 MG PO (09:10)
[2024-04-27] MEDS: WELLBUTRIN SR (12 hour sustained release) 200 MG PO (09:10)
[2024-04-27] MEDS: SENOKOT 17.2 MG PO (09:10)
[2024-04-27] MEDS: LIPITOR 20 MG PO (09:11)
[2024-04-27] MEDS: KLONOPIN 0.5 MG PO (09:11)
[2024-04-27] MEDS: TOPROL XL 37.5 MG PO (09:11)
[2024-04-27] MEDS: HEPARIN 5000 UNITS SC (09:12)
[2024-04-27] MEDS: PREVNAR 20 0.5 ML IM (09:13)
[2024-04-27 09:47] LABS: ALT (SGPT) 17 U/L (0-50); AST (SGOT) 25 U/L (17-59); Albumin 3.3 g/dl (3.5-5.0); Alkaline Phosphatase 68 U/L (38-126); Blood Urea Nitrogen 33 mg/dl (9-20); Carbon Dioxide 23 mmol/L (22-30); Chloride 107 mmol/L (98-107); Estimated Creatinine Clearance 82 ml/min; Glucose 109 mg/dl (70-99); Potassium 4.5 mmol/L (3.5-5.1); Sodium 141 mmol/L (135-145); Total Bilirubin 0.7 mg/dl (0.2-1.3); Total Protein 5.4 g/dl (6.3-8.2); eGFR > 60.00
--- NOTE | 2024-04-27 10:18 | CM ---
Addendum entered by Vanesa Gonzales 04/27/24 10:27:
will provide transport home
Original Note:
Plan: Discharge to home today with home health for PT with [facility]
Case Management Consult completed: Met with patient and spouse at bedside; Home Health for PT recommendation discussed; patient is agreeable; Home Health agency options identified; preference is [facility]; referral sent via [employer]
== END 2024-04-27 11:30 | disposition home health service (06) | DRG 519 ==
LOC: SDS 15:05
PROVIDERS: Clinical Nurse Specialist Family Health; Hospitalist; CONSULT PHYSICIAN Neurological Surgery; EMERGENCY PHYSICIAN Emergency Medicine; FAMILY PHYSICIAN Family Medicine
PROC: 0SB40ZZ Excision of Lumbosacral Disc, Open Approach (ICD-10-PCS; 2024-04-26)
DX: M51.16 Intervertebral disc disorders with radiculopathy, lumbar region (principal); N39.0 Urinary tract infection, site not specified; M51.17 Intervertebral disc disorders with radiculopathy, lumbosacral region; R79.89 Other specified abnormal findings of blood chemistry; G47.33 Obstructive sleep apnea (adult) (pediatric); I10 Essential (primary) hypertension; R33.9 Retention of urine, unspecified; E66.9 Obesity, unspecified; Z87.442 Personal history of urinary calculi; Z91.199 Patient's noncompliance with other medical treatment and regimen due to unspecified reason; Z68.33 Body mass index [BMI] 33.0-33.9, adult
CPT/HCPCS: 63030; 51798; 72100; 72148; 73610; 76000; 80053; 81003; 81015; 85025; 86803; 87086; 90677; 93005; 96374; 96375; 97163; 97167; 99285; G0009

== ENCOUNTER → 2024-06-11 07:55 | Outpatient (REF) | payer MEDICARE, SELFPAY | LOC: RAD 07:55 | PROVIDERS: ATTENDING PHYSICIAN Nurse Practitioner Family | DX: R10.9 Unspecified abdominal pain (principal) | CPT/HCPCS: 74177; Q9967 ==

== ENCOUNTER → 2024-07-04 14:05 | Outpatient (REF) | payer MEDICARE, SELFPAY | LOC: HWRAD 14:05 | PROVIDERS: ATTENDING PHYSICIAN Nurse Practitioner Family | DX: R91.1 Solitary pulmonary nodule (principal) | CPT/HCPCS: 71260; Q9967 ==

== ENCOUNTER → 2024-07-05 09:55 | Outpatient (REF) | payer MEDICARE, SELFPAY | LOC: HWRAD 09:55 | PROVIDERS: ATTENDING PHYSICIAN Internal Medicine Cardiovascular Disease; FAMILY PHYSICIAN Family Medicine | DX: R55 Syncope and collapse (principal) | CPT/HCPCS: 93880 ==

== ENCOUNTER 2024-07-12 02:47 | Inpatient (IN) | payer MEDICARE, SELFPAY ==
[2024-07-12] VITALS (19 sets, daily range): BP systolic 89–136; BP diastolic 53–80; BMI 35.2
[2024-07-12] MEDS: NSS 1000 IV (00:45)
[2024-07-12 00:57] LABS: % Basophils 0.3 % (0-2); % Eosinophils 0.1 % (0-6); % Immature Granulocytes 0.7 % (0-0.5); % Lymphocytes 5.7 % (20.5-51.1); % Monocytes 8.7 % (1.7-9.3); % Neutrophils 84.5 % (42.2-75.2); Absolute Immature Granulocytes 0.1 10^3/uL (0-0.05); Absolute Lymphocytes 0.9 10^3/uL (1.2-3.4); Absolute Monocytes 1.3 10^3/uL (0.1-0.6); Absolute Neutrophils 12.5 10^3/uL (1.4-6.5); Hematocrit 43.9 % (39.0-52.0); Hemoglobin 14.3 g/dL (13.0-18.0); Mean Corp Hgb Conc. 32.6 g/dL (33.0-37.0); Mean Corpuscular Hgb 29.7 pg (27.0-31.0); Mean Corpuscular Volume 91.1 fL (80.0-94.0); Mean Platelet Volume 8.6 fL (7.4-10.4); Nucleated Red Blood Cells % 0 % (-); Platelet Count 206 10^3/uL (130-400); Red Blood Cell Count 4.82 10^6/uL (4.70-6.10); Red Cell Dist. Width 13.6 % (11.5-14.5); White Blood Cell Count 14.8 10^3/uL (4.8-10.8)
--- NOTE | 2024-07-12 00:59 | ED.GENMED ---
History of Present Illness
<LILLIAN De Luna - Last Filed: 07/12/24 04:51>
General
Chief Complaint: Urinary Symptoms
Source: patient and spouse
Time Seen by Provider: 07/12/24 00:28
Nursing documentation reviewed up to this point in time: agreed with
History of Present Illness
History of Present Illness:
Pt is a 63 yo M with a history of nephrolithiasis, HTN, HLD, and asthma who presents chills and dizziness x 1 week. Pt states that he has had a kidney stone for about 1.5 weeks. The patient's reports that the patient has a 6mm left kidney stone
and was scheduled for kidney stone removal on 07/16. Pt reports that the dizziness is worse when he stands and walks, and is improve when he sits down. Pt describes the dizziness as the room spinning. Pt also admits to a mild HUANG. He states that it
comes on and is worse when he has the dizziness from standing. Pt did not take temperature at home but reports having chills. Pt denies syncope, weakness, numbness or tingling in extremities, vision changes, chest pain, changes in hearing, N/V/D,
changes in urination.
Pt states that he has had kidney stones previously. He reports his last kidney stone was 3 years ago and that he got it removed.
Past History
<LILLIAN De Luna - Last Filed: 07/12/24 04:51>
Past History
ED Past Medical History: Asthma, HTN, Hypercholesterolemia and Other (Kidney stones, Diverticulitis, UTI); Negative NIDDM
ED Past Surgical History: Urological
Social History
Tobacco: Former smoker
Alcohol: None
Personal:
Living: with family
Employment: Employed (contractor)
Family History
Family History: Other
Review of Systems
<LILLIAN De Luna - Last Filed: 07/12/24 04:51>
Review of Systems
Allergies reviewed?: Yes
Constitutional: Reports chills
Respiratory: Reports no symptoms
Cardiac: Reports no symptoms
ABD/GI: Reports no symptoms
: Reports flank pain
Neurological: Reports dizzy and headache
Phy Exam
<Billie Hirsch [facility] - Last Filed: 07/12/24 04:51>
General Physical Exam
General Presentation: no apparent distress
General age: appears stated age
General Skin: warm
General Habitus: obese
General Mental: confused
General Hydration: appears well hydrated
Cardiovascular Exam
Cardiovascular Exam: regular rate/rhythm
Pulmonary Exam
Pulmonary Exam: lungs clear
Sepsis
<Billie Hirsch [facility] - Last Filed: 07/12/24 04:51>
Sepsis Screening
Sepsis Assessment: Severe Sepsis
Sepsis Screening: Urine output- <0.5ml/kg/hr for 2 consecutive hours
Sepsis Screen
Sepsis Screen: Severe Sepsis
Date: 07/12/24
Time: 04:51
Course
<Billie Hirsch [facility] - Last Filed: 07/12/24 04:51>
Orders/Labs/Results
Orders:
Orders
07/12/24 00:34
0.9% Sodium Chloride 1000 ml [Nss] 1,000 ml IV BOLUS
07/12/24 00:36
CT Abd/pel Without Iv Or Oral Urgent
Comment:
Reason For Exam: fever, chills known kidney stone
07/12/24 00:50
Complete Blood Count/With Diff Urgent
Comprehensive Metabolic Panel Urgent
07/12/24 01:22
Piperacillin/Tazo 4.5 Gram [Zosyn] 4.5 gram in 100 ml IV NOW
07/12/24 01:30
Acetaminophen 1000MG/100Ml [Ofirmev] 1,000 mg in 100 ml IV ONCE
Acetaminophen IV Indication:: Targeted Temp Management
07/12/24 01:31
Acetaminophen 1000MG/100Ml [Ofirmev] 1,000 mg in 100 ml .ROUTE .STK-MED
07/12/24 01:56
Admit/Transfer Patient As Directed
Co-Sign Provider:
Level of Care: Inpatient admission
Assign to:: Medical/Surgical
Physician / Group: hospitalist
Diagnosis: pyelonephritis, kidney stone
Reason for Hospitalization: infected kidney stone
Expected length of stay greater than two midnights?: Yes
ELOS- Estimated Length of Stay in days: 2
I certify the patient meets the requirements for IP care: Yes
07/12/24 01:57
PRN Pain Medication Management As Directed
May give lesser potent ordered pain med per pt: Yes
preference::
Protocol:: Medication orders for pain may be administered in a
manner that supports deferring to patient preference
when the pt is:
- Requesting an ordered lesser potent pain medication.
Least to most potent pain medications are defined
as: acetaminophen < NSAID < tramadol < opioids
(morphine, oxycodone, hydromorphone).
- Requesting a lesser dose of the same medication IF
ORDERED.
- Requesting a less intrusive route of administration
if both routes are prescribed by the provider (PO <
IV).
07/12/24 01:58
Code Status As Directed
Resuscitation Status: Full Code
07/12/24 02:07
Urinalysis Reflex To Culture Urgent
Date Specimen was Collected: 07/12/24
Time Specimen was Collected: 00:57
Urine Microscopic Reflex Cult Urgent
Urine Culture Urgent
RUBEN Source: U
Specimen Description:
Date Specimen was Collected: 07/12/24
Time Specimen was Collected: 00:57
07/12/24 02:08
Dexamethasone Sod Phosphate [Decadron] 20 mg .ROUTE .STK-MED ONE
Fentanyl Citrate/Pf [Sublimaze] 100 mcg .ROUTE .STK-MED ONE
Lidocaine 2% Mpf [Xylocaine Mpf 2%] 100 mg .ROUTE .STK-MED ONE
Ondansetron Injectable [Zofran] 4 mg .ROUTE .STK-MED ONE
Propofol [Diprivan] 20 ml .ROUTE .STK-MED
07/12/24 02:11
Iohexol [Omnipaque] 50 ml .ROUTE .STK-MED ONE
07/12/24 02:39
HYDROmorphone [Dilaudid] 0.25 mg IV PACU-Q5MPRN PRN
HYDROmorphone [Dilaudid] 0.5 mg IV PACU-Q5MPRN PRN
Ondansetron Injectable [Zofran] 4 mg IV PACU-ONCEPRN PRN
Prochlorperazine [Compazine] 5 mg IV PACU-ONCEPRN PRN
Notify MD As Directed
Notify physician if: for SDS patients with known or suspected sleep obstructive sleep apnea, monitor in the
PACU.
Notify MD for any apneic/desaturation episodes
O2 Therapy [RESP] Urgent
Titrate/Wean O2 to maintain O2 sat greater than (%): 92
Special Instructions: -Provide supplemental oxygen to achieve O2 sat of 92% or greater.
-After 15 min, may wean O2 and discontinue if patient is able to maintain O2 sat of 92%
or greater during recovery period.
If patient is a discharge home, without oxygen therapy, notify anestheiologist if
unable to maintain O2 SAT of 92% or greater on room air for MD clearance.
07/12/24 03:00
Flush (0.9% Sodium Chloride) [Flush (Nss)] See Dose Instructions IV PER PROTOCOL
07/12/24 03:18
Acetaminophen [Tylenol] 650 mg PO Q4HPRN PRN
Bisacodyl [Dulcolax] 10 mg RECTAL [id number] PRN
Cyclobenzaprine HCl [Flexeril] 10 mg PO Q8HPRN PRN
Docusate W/Senna [Senokot-S] 1 tablet PO BIDPRN PRN
HYDROmorphone [Dilaudid] 0.5 mg IV Q4HPRN PRN
Lactated Ringers [Lr] 1,000 ml IV 75 mls/hr
Ondansetron Injectable [Zofran] 4 mg IV Q6HPRN PRN
Polyethylene Glycol Powder [Miralax] 17 grams PO DAILYPRN PRN
07/12/24 03:18
UROLOGY CONSULT Routine
Consulting Provider: Sudhakar Duarte
Was physician already notified: Yes
Comment: infected left uvj stone, hydronephrosis and keo
Activity As Directed
Activity Level: With Assistance
Vital Signs As Directed
Frequency: Per unit guidelines
O2 Therapy [RESP] Routine
Nasal Cannula Liter Flow: 2 LPM
Titrate/Wean O2 to maintain O2 sat greater than (%): 90
Pulse Ox/spot Check [RESP] Routine
Quantity: 1
DX Deep Vein Thrombosis Video Routine
07/12/24 Breakfast
NPO
Allow oral meds: Yes
Allow clear liquids: Sips of Clears
NPO with Ice Chips: No
Basic Metabolic Panel IN AM
Complete Blood Count/With Diff IN AM
Magnesium IN AM
07/12/24 08:00
Atorvastatin [Lipitor] 20 mg PO DAILY
Bupropion(12Hr)Sustain Release [WELLBUTRIN SR (12 hour sustained release)] 200 mg PO DAILY
Clonazepam [Klonopin] 0.5 mg PO BID
Docusate Sodium [Colace] 100 mg PO BID
Duloxetine Delayed Release [Cymbalta Delayed Release] 120 mg PO DAILY
Heparin 5,000 units SC Q8
Metoprolol Xl [Toprol Xl] 37.5 mg PO DAILY
07/12/24 22:00
Amlodipine [Norvasc] 5 mg PO HS
Abnormal Lab Results
07/12/24 07/12/24
00:50 02:07
WBC 14.8 H 10^3/uL
(4.8-10.8)
MCHC 32.6 L g/dL
(33.0-37.0)
Abs Immat Gran (auto) 0.1 H 10^3/uL
(0-0.05)
Absolute Neuts (auto) 12.5 H 10^3/uL
(1.4-6.5)
Absolute Lymphs (auto) 0.9 L 10^3/uL
(1.2-3.4)
Absolute Monos (auto) 1.3 H 10^3/uL
(0.1-0.6)
Immature Gran % 0.7 H %
(0-0.5)
Neutrophils % 84.5 H %
(42.2-75.2)
Lymphocytes % 5.7 L %
(20.5-51.1)
Sodium 134 L mmol/L
(135-145)
Carbon Dioxide 21 L mmol/L
(22-30)
BUN 39 H mg/dl
(9-20)
Creatinine 2.5 H mg/dL
(0.7-1.3)
Glucose 120 H mg/dl
(70-99)
Total Bilirubin 1.4 H mg/dl
(0.2-1.3)
Total Protein 5.9 L g/dl
(6.3-8.2)
Ur Occult Blood Reflex 1+ A
(Negative)
Leukocyte Esterase Rfl Trace A
(Negative)
Urine RBC 16-20 A /HPF
(0-2)
Urine WBC (Reflex) 70-80 A /HPF
(0-5)
Urine Bacteria (Reflex) Moderate A
(Negative)
07/12/24 00:50
07/12/24 00:50
Vital Signs
Initial and Last Documented VS:
Initial Vital Signs
Temp Pulse Resp BP Pulse Ox
99.8 F 121 20 127/80 95
07/12/24 00:14 07/12/24 00:14 07/12/24 00:14 07/12/24 00:14 07/12/24 00:14
Last Documented Vital Signs
Temp Pulse Resp BP Pulse Ox
99.4 F 93 18 109/54 92
07/12/24 03:45 07/12/24 04:00 07/12/24 04:00 07/12/24 04:00 07/12/24 04:00
<Raffy Cody, DO - Last Filed: 07/12/24 01:34>
Orders/Labs/Results
Orders:
Orders
07/12/24 00:34
0.9% Sodium Chloride 1000 ml [Nss] 1,000 ml IV BOLUS
07/12/24 00:36
CT Abd/pel Without Iv Or Oral Urgent
Comment:
Reason For Exam: fever, chills known kidney stone
07/12/24 00:50
Complete Blood Count/With Diff Urgent
Comprehensive Metabolic Panel Urgent
07/12/24 01:22
Piperacillin/Tazo 4.5 Gram [Zosyn] 4.5 gram in 100 ml IV NOW
07/12/24 01:30
Acetaminophen 1000MG/100Ml [Ofirmev] 1,000 mg in 100 ml IV ONCE
Acetaminophen IV Indication:: Targeted Temp Management
07/12/24 01:31
Acetaminophen 1000MG/100Ml [Ofirmev] 1,000 mg in 100 ml .ROUTE .STK-MED
07/12/24 01:56
Admit/Transfer Patient As Directed
Co-Sign Provider:
Level of Care: Inpatient admission
Assign to:: Medical/Surgical
Physician / Group: hospitalist
Diagnosis: pyelonephritis, kidney stone
Reason for Hospitalization: infected kidney stone
Expected length of stay greater than two midnights?: Yes
ELOS- Estimated Length of Stay in days: 2
I certify the patient meets the requirements for IP care: Yes
07/12/24 01:57
PRN Pain Medication Management As Directed
May give lesser potent ordered pain med per pt: Yes
preference::
Protocol:: Medication orders for pain may be administered in a
manner that supports deferring to patient preference
when the pt is:
- Requesting an ordered lesser potent pain medication.
Least to most potent pain medications are defined
as: acetaminophen < NSAID < tramadol < opioids
(morphine, oxycodone, hydromorphone).
- Requesting a lesser dose of the same medication IF
ORDERED.
- Requesting a less intrusive route of administration
if both routes are prescribed by the provider (PO <
IV).
07/12/24 01:58
Code Status As Directed
Resuscitation Status: Full Code
07/12/24 02:07
Urinalysis Reflex To Culture Urgent
Date Specimen was Collected: 07/12/24
Time Specimen was Collected: 00:57
Urine Microscopic Reflex Cult Urgent
Urine Culture Urgent
RUBEN Source: U
Specimen Description:
Date Specimen was Collected: 07/12/24
Time Specimen was Collected: 00:57
07/12/24 02:08
Dexamethasone Sod Phosphate [Decadron] 20 mg .ROUTE .STK-MED ONE
Fentanyl Citrate/Pf [Sublimaze] 100 mcg .ROUTE .STK-MED ONE
Lidocaine 2% Mpf [Xylocaine Mpf 2%] 100 mg .ROUTE .STK-MED ONE
Ondansetron Injectable [Zofran] 4 mg .ROUTE .STK-MED ONE
Propofol [Diprivan] 20 ml .ROUTE .STK-MED
07/12/24 02:11
Iohexol [Omnipaque] 50 ml .ROUTE .STK-MED ONE
07/12/24 02:39
HYDROmorphone [Dilaudid] 0.25 mg IV PACU-Q5MPRN PRN
HYDROmorphone [Dilaudid] 0.5 mg IV PACU-Q5MPRN PRN
Ondansetron Injectable [Zofran] 4 mg IV PACU-ONCEPRN PRN
Prochlorperazine [Compazine] 5 mg IV PACU-ONCEPRN PRN
Notify MD As Directed
Notify physician if: for SDS patients with known or suspected sleep obstructive sleep apnea, monitor in the
PACU.
Notify MD for any apneic/desaturation episodes
O2 Therapy [RESP] Urgent
Titrate/Wean O2 to maintain O2 sat greater than (%): 92
Special Instructions: -Provide supplemental oxygen to achieve O2 sat of 92% or greater.
-After 15 min, may wean O2 and discontinue if patient is able to maintain O2 sat of 92%
or greater during recovery period.
If patient is a discharge home, without oxygen therapy, notify anestheiologist if
unable to maintain O2 SAT of 92% or greater on room air for MD clearance.
07/12/24 03:00
Flush (0.9% Sodium Chloride) [Flush (Nss)] See Dose Instructions IV PER PROTOCOL
07/12/24 03:18
Acetaminophen [Tylenol] 650 mg PO Q4HPRN PRN
Bisacodyl [Dulcolax] 10 mg RECTAL [id number] PRN
Cyclobenzaprine HCl [Flexeril] 10 mg PO Q8HPRN PRN
Docusate W/Senna [Senokot-S] 1 tablet PO BIDPRN PRN
HYDROmorphone [Dilaudid] 0.5 mg IV Q4HPRN PRN
Lactated Ringers [Lr] 1,000 ml IV 75 mls/hr
Ondansetron Injectable [Zofran] 4 mg IV Q6HPRN PRN
Polyethylene Glycol Powder [Miralax] 17 grams PO DAILYPRN PRN
07/12/24 03:18
UROLOGY CONSULT Routine
Consulting Provider: Sudhakar Duarte
Was physician already notified: Yes
Comment: infected left uvj stone, hydronephrosis and keo
Activity As Directed
Activity Level: With Assistance
Vital Signs As Directed
Frequency: Per unit guidelines
O2 Therapy [RESP] Routine
Nasal Cannula Liter Flow: 2 LPM
Titrate/Wean O2 to maintain O2 sat greater than (%): 90
Pulse Ox/spot Check [RESP] Routine
Quantity: 1
DX Deep Vein Thrombosis Video Routine
07/12/24 Breakfast
NPO
Allow oral meds: Yes
Allow clear liquids: Sips of Clears
NPO with Ice Chips: No
Basic Metabolic Panel IN AM
Complete Blood Count/With Diff IN AM
Magnesium IN AM
07/12/24 08:00
Atorvastatin [Lipitor] 20 mg PO DAILY
Bupropion(12Hr)Sustain Release [WELLBUTRIN SR (12 hour sustained release)] 200 mg PO DAILY
Clonazepam [Klonopin] 0.5 mg PO BID
Docusate Sodium [Colace] 100 mg PO BID
Duloxetine Delayed Release [Cymbalta Delayed Release] 120 mg PO DAILY
Heparin 5,000 units SC Q8
Metoprolol Xl [Toprol Xl] 37.5 mg PO DAILY
07/12/24 22:00
Amlodipine [Norvasc] 5 mg PO HS
Abnormal Lab Results
07/12/24 07/12/24
00:50 02:07
WBC 14.8 H 10^3/uL
(4.8-10.8)
MCHC 32.6 L g/dL
(33.0-37.0)
Abs Immat Gran (auto) 0.1 H 10^3/uL
(0-0.05)
Absolute Neuts (auto) 12.5 H 10^3/uL
(1.4-6.5)
Absolute Lymphs (auto) 0.9 L 10^3/uL
(1.2-3.4)
Absolute Monos (auto) 1.3 H 10^3/uL
(0.1-0.6)
Immature Gran % 0.7 H %
(0-0.5)
Neutrophils % 84.5 H %
(42.2-75.2)
Lymphocytes % 5.7 L %
(20.5-51.1)
Sodium 134 L mmol/L
(135-145)
Carbon Dioxide 21 L mmol/L
(22-30)
BUN 39 H mg/dl
(9-20)
Creatinine 2.5 H mg/dL
(0.7-1.3)
Glucose 120 H mg/dl
(70-99)
Total Bilirubin 1.4 H mg/dl
(0.2-1.3)
Total Protein 5.9 L g/dl
(6.3-8.2)
Ur Occult Blood Reflex 1+ A
(Negative)
Leukocyte Esterase Rfl Trace A
(Negative)
Urine RBC 16-20 A /HPF
(0-2)
Urine WBC (Reflex) 70-80 A /HPF
(0-5)
Urine Bacteria (Reflex) Moderate A
(Negative)
07/12/24 00:50
07/12/24 00:50
Vital Signs
Initial and Last Documented VS:
Initial Vital Signs
Temp Pulse Resp BP Pulse Ox
99.8 F 121 20 127/80 95
07/12/24 00:14 07/12/24 00:14 07/12/24 00:14 07/12/24 00:14 07/12/24 00:14
Last Documented Vital Signs
Temp Pulse Resp BP Pulse Ox
99.4 F 93 18 109/54 92
07/12/24 03:45 07/12/24 04:00 07/12/24 04:00 07/12/24 04:00 07/12/24 04:00
<LILLIAN De Luna - Last Filed: 07/12/24 04:51>
MDM/Problems Addressed
Differential Diagnosis Includes:
SIRS, sepsis
<LILLIAN De Luna - Last Filed: 07/12/24 04:51>
*Critical Care Note
Total Time (30-74mins, 75-104mins- exclusive of procedures): Not Applicable
<Raffy Cody DO - Last Filed: 07/12/24 01:34>
*Critical Care Note
Total Time (30-74mins, 75-104mins- exclusive of procedures): 30 (Critical care statement: A total of 30 minutes of critical care time was provided for this patient. This time is separate from time utilized to perform the aforementioned documented
procedures. Aggregate critical care time includes only time during which I was engaged in work directl)
ED Attending Note
<LILLIAN De Luna - Last Filed: 07/12/24 04:51>
-
Portions of this chart may have been created with voice recognition software.� Occasional wrong word or��sound alike� substitutions may have occurred due to the inherent limitations of voice recognition software.
<Raffy Cody DO - Last Filed: 07/12/24 01:34>
ED Attending Note
Patient seen and examined by attending physician: Yes
I performed the substantive portion of visit, reviewed & personally made and approve the management plan that is documented in note by myself or AARON.: Yes
ED Attending Note:
Pleasant 63-year-old male with known kidney stone presents to the emerged part with fever, chills, confusion, and shakes. Was due to have his kidney stone removed on July [address] Buck. Patient was seen in conjunction with the PA student.
I have reviewed and agree with the history and treatment plan presented. On my independent physical exam, patient is awake, alert, and slightly confused according to . He is diaphoretic. He is shaking. Heart is tachycardic. Patient is
uroseptic due to likely obstructing kidney stone. I spoke with Dr. Duarte who is on his way in. Fluids, antibiotics, and antipyretics initiated.
Discharge Plan
Departure
Patient Disposition: OR
Date of Disposition: 07/12/24
Time of Disposition: 01:33
Admit to: OR
Presentation/result/management discussed w/ accepting MD/DO: Felicia
Condition: Serious
Discharge Problem:
urosepsis, Kidney stone on left side
Interventions
Interventions:
*Risk Screen - Suicide Last Done: 07/12/24 00:14
*General Assessment Last Done: 07/12/24 00:14
*Neglect/Abuse Screening Last Done: 07/12/24 00:14
*ED COVID-19 Vaccine History Last Done: 07/12/24 00:14
*Nursing Disposition Last Done: 07/12/24 02:11
ED-Male Genitourinary Assessment Last Done: 07/12/24 00:54
Discharge Date and Time
Discharge Date/Time: 07/12/24 02:12
[2024-07-12 01:17] LABS: ALT (SGPT) 22 U/L (0-50); AST (SGOT) 21 U/L (17-59); Albumin 3.6 g/dl (3.5-5.0); Alkaline Phosphatase 67 U/L (38-126); Blood Urea Nitrogen 39 mg/dl (9-20); Calcium 9.9 mg/dl (8.4-10.2); Carbon Dioxide 21 mmol/L (22-30); Chloride 102 mmol/L (98-107); Estimated Creatinine Clearance 37 ml/min; Glucose 120 mg/dl (70-99); Potassium 4.6 mmol/L (3.5-5.1); Sodium 134 mmol/L (135-145); Total Bilirubin 1.4 mg/dl (0.2-1.3); Total Protein 5.9 g/dl (6.3-8.2); eGFR 27.82
[2024-07-12] MEDS: ZOSYN 100 IV (01:35)
[2024-07-12] MEDS: OFIRMEV 100 IV (01:36)
--- NOTE | 2024-07-12 01:45 | HPS.HSE ---
Family Physician
-
Family Physician: Billie Shukla
Chief Complaint
-
Fever and confusion with flank pain
History of Present Illness
Patient is a 63-year-old male with past medical history of recurrent nephrolithiasis, hypertension, BRENNAN noncompliant with CPAP, history of and is a disc status post surgery who presents to the emergency department with fever confusion and flank pain.
Patient has a known kidney stone (left 6 mm UVj stone) that is being followed by urology. He has a pending procedure for stone extraction. In the meantime the patient reports that he had some flank pain 2 days ago. He resolved the following day.
However today he started having confusion and felt feverish. Spouse decided to bring him to the emergency department. He was able to tolerate p.o. denies nausea or vomiting.
In the emergency department the patient had a temp of 99 degrees, blood pressure was 130/78 but he was tachycardic to 121. White count was 14,800, hemoglobin and platelet counts are within normal limits. His creatinine is up to 2.5 from baseline
of 1.1. The rest of the electrolytes are within normal limits except for a sodium of 134. UA is pending at this time. CT of the abdomen pelvis showed headache hydroureteronephrosis and stone per my read.
Medical History
Past Medical History
Past Medical History: Reports Asthma, Hypercholesterolemia and Psychiatric
Additional Past Medical History:
Nephrolithiasis
BRENNAN noncompliant with CPAP
Past Surgical History: Reports Other
Social History
Tobacco: Former Smoker
Alcohol: None
Drug: None
Personal:
Living: With Family
Family History
Family History: Not pertinent
Allergies / Home Medications
Allergies reflects when Allergies were last updated in [employer].
Home Medications with original date entered in [employer]
Allergy/Medication List:
Allergies
Allergy/AdvReac Type Severity Reaction Status Date / Time
perfume Allergy congestion Verified 04/25/24 17:28
tree and shrub pollen Allergy congestion Verified 04/25/24 17:28
GAS FUMES Allergy congestion Uncoded 04/25/24 17:28
Home Medications
clonazepam 0.5 mg tablet 0.5 mg PO BID Mental Health/Anxiety 08/25/18
duloxetine 60 mg capsule,delayed release 120 mg PO DAILY Mental Health/Anxiety 08/25/18
acetaminophen 325 mg tablet (Tylenol) 650 mg PO Q4HPRN PRN mild pain 04/25/24
amlodipine 5 mg tablet 5 mg PO HS Blood Pressure 04/25/24
atorvastatin 20 mg tablet (Lipitor) 20 mg PO DAILY High Cholesterol 04/25/24
bupropion HCl 200 mg tablet,12 hr sustained-release (Wellbutrin SR) 200 mg PO DAILY Mental Health/Anxiety 04/25/24
metoprolol succinate 25 mg tablet,extended release 24 hr (Toprol XL) 37.5 mg PO DAILY Heart Disease/Condition 04/25/24
cyclobenzaprine 10 mg tablet 10 mg PO Q8HPRN PRN muscle spasms #15 tabs 04/27/24
docusate sodium 100 mg capsule 100 mg PO BID #0 caps 04/27/24
methylprednisolone 4 mg tablets in a dose pack (Medrol (Cameron)) See Rx Instructions PO .COMPLEX #21 ea 04/27/24
Review of Systems
-
History Source: Patient and Family
Constitutional: Reports Fever and Chills
EENT: Reports No Symptoms
Respiratory: Reports No Symptoms
Cardiac: Reports No Symptoms
Abdomen/GI: Reports No Symptoms
: Reports Flank Pain
Musculoskeletal: Reports No Symptoms
Skin: Reports No Symptoms
Neurological: Reports No Symptoms
Endocrine: Reports No Symptoms
Hematologic/Lymphatic: Reports No Symptoms
Physical Exam
Vital Signs
Vital Signs
Temp Pulse Resp BP Pulse Ox
103 F H 104 19 132/68 97
07/12/24 01:36 07/12/24 01:37 07/12/24 01:37 07/12/24 01:37 07/12/24 01:37
Physical Exam
General: Well Developed, Well Nourished and Appears in Distress
HEENT: NormoCephalic, Anicteric, Moist mucous membranes and Atraumatic
Respiratory: Clear
Cardiac: S1/S2 and Tachycardia
Breast: Deferred by me
GI: Soft, Non Tender, Non Distended and Normal Bowel Sounds
Rectal: Deferred by Provider
Genito-urinary: Costovertebral angle tend
Musculoskeletal: No Clubbing, No Cyanosis, Edema, Left Lower Extremity (trace) and Edema, Right Lower Extremity (trace)
Skin: Warm
Neuro: AO x 3
Hematologic/Lymphatic: No Lymphadenopathy
Psych: Calm
Laboratory Results
-
07/12/24 00:50
07/12/24 00:50
Laboratory Results
Total Bilirubin 1.4 mg/dl (0.2-1.3) H 07/12/24 00:50
AST 21 U/L (17-59) 07/12/24 00:50
ALT 22 U/L (0-50) 07/12/24 00:50
Alkaline Phosphatase 67 U/L (38-126) 07/12/24 00:50
Data Reviewed
-
CT Scan: Image Personally Visualized and interpreted
Lab Data: Labs Reviewed by me
Old Records: Reviewed
Impression/Plan
-
IMPRESSION:
63 M with recurrent nephrolithiasis. Has a 6 mm L UVJ stone pending retrieval/extraction but came in with fever, tachycardia and leukocytosis. CT a/p today with hydroureteronephrosis. Clinical picture concerning for infected kidney stone.
Creatinine up to 2.5 from 1.1. U/A pending.
PLAN:
1. Infected kidney stone - sepsis per clinical picture but remains hemodynamically stable.
- admit to med/surg
- urology consulted and pending OR shortly
- npo for now
- blood cultures
- urine cultures pending
- started on zosyn, no culture data on past attempts, will continue with cefepime 1 gm q 12 renal dosing for now
- IV LR after 30 ml/kg NS resuscitation, held am bp metoprolol with hold parameters for following bp meds
2. Asthma -
- no acute symptoms, continue prn nebs
3. BRENNAN
- oxygen HS for now prn
4. DANE - DANE without electrolyte anomalies. Cr 2.5 up from 1.1. Suspect related to nephrolithiasis and possibly sepsis
- abx and fluid resuscitation as above
- stone treatment per urology
- monitor renal function
DVT PPX - heparin sq
Code status - full code
[2024-07-12 02:15] LABS: Urine Albumin Trace (Neg - Trace); Urine Bilirubin Negative (Negative); Urine Character Clear (Clear); Urine Color Yellow; Urine Glucose Negative (Negative); Urine Ketone Negative (Negative); Urine Leukocyte Trace (Negative); Urine Nitrite Negative (Negative); Urine Occult Blood 1+ (Negative); Urine Specific Gravity 1.015 (<1.030); Urine Urobilinogen Negative (Neg - 1+)
--- NOTE | 2024-07-12 02:17 | CONS.URO ---
Consultation
-
Performing Provider: Peffer
Reason for Consultation: sepsis, ureteral stone
Medical History
History of Present Illness
63M with history of stones
Known L ureteral stone
Presenting with confusion and sepsis
L distal ureteral stone on CT
Past Medical History
Past Medical History: Other (Kidney stone)
Past Surgical History: None
Social History
Tobacco: Former Smoker
Alcohol: None
Drug: None
Family History
Family History: Reviewed & Not Pertinent
Allergies/Home Medications
Allergies
Allergy/AdvReac Type Severity Reaction Status Date / Time
perfume Allergy congestion Verified 04/25/24 17:28
tree and shrub pollen Allergy congestion Verified 04/25/24 17:28
GAS FUMES Allergy congestion Uncoded 04/25/24 17:28
Home Medications
�Medication �Instructions �Recorded �Confirmed �Type
clonazepam 0.5 mg tablet 0.5 mg PO BID Mental Health/Anxiety 08/25/18 04/25/24 History
duloxetine 60 mg capsule,delayed 120 mg PO DAILY Mental 08/25/18 04/25/24 History
release Health/Anxiety
acetaminophen 325 mg tablet 650 mg PO Q4HPRN PRN mild pain 04/25/24 04/25/24 History
(Tylenol)
amlodipine 5 mg tablet 5 mg PO HS Blood Pressure 04/25/24 04/25/24 History
atorvastatin 20 mg tablet (Lipitor) 20 mg PO DAILY High Cholesterol 04/25/24 04/25/24 History
bupropion HCl 200 mg tablet,12 hr 200 mg PO DAILY Mental 04/25/24 04/25/24 History
sustained-release (Wellbutrin SR) Health/Anxiety
metoprolol succinate 25 mg 37.5 mg PO DAILY Heart 04/25/24 04/25/24 History
tablet,extended release 24 hr Disease/Condition
(Toprol XL)
cyclobenzaprine 10 mg tablet 10 mg PO Q8HPRN PRN muscle spasms 04/27/24 Rx
#15 tabs
docusate sodium 100 mg capsule 100 mg PO BID #0 caps 04/27/24 Rx
methylprednisolone 4 mg tablets in See Rx Instructions PO .COMPLEX 04/27/24 Rx
a dose pack (Medrol (Cameron)) #21 ea
Physical Exam
Vital Signs
Vital Signs
Temp Pulse Resp BP Pulse Ox
101 F H 104 19 136/76 97
07/12/24 02:10 07/12/24 01:37 07/12/24 01:37 07/12/24 02:00 07/12/24 01:55
Lab / Testing Results
Laboratory Results
07/12/24 00:50
07/12/24 00:50
Physical Exam
General: Well Developed, Well Nourished and Sweats
Respiratory: Clear and Non Labored Respirations
GI: Soft and Non Tender
Genito-urinary: No Costovertebral Tend
Neuro: Awake, Alert and Slurred Speech
Psych: Calm and Intact Judgement
Assessment / Plan
-
63M with sepsis and L ureteral stone
- OR for L ureteral stent
- Broad spectrum abx, admit for sepsis
- Cultures
Data Reviewed
-
CT Scan: Image personally visualized and interpreted
Lab Data: Labs Reviewed
[2024-07-12 02:24] LABS: Urine Amorphous Seen; Urine Squamous Cell 21-25 /LPF (Few); Urine White Cell 70-80 /HPF (0-5)
[2024-07-12 02:25] LABS: Urine Bacteria Moderate (Negative)
[2024-07-12 02:26] LABS: Urine Red Blood Cell 16-20 /HPF (0-2)
--- NOTE | 2024-07-12 03:00 | W.IMMPOSTOP ---
Surgical Immed Post Op Note
-
Primary Surgeon: Peffer
Assisting Surgeon: -
Pre-op Diagnosis: sepsis, L ureteral stone
Post-op Diagnosis: same
Procedure Performed: cystoscopy, L stent
Anesthesia Type: gen
Specimen / Cultures: none
Estimated Blood Loss: none
Complications: none
Operative Findings: Thick purulent urine above stone
Victoria placed
[2024-07-12] MEDS: LR 1000 IV (03:30)
--- NOTE | 2024-07-12 04:52 | TRANSFER ---
Report received from REQUISITION APPROVER Anne. Received pt in bed s/p cysto and left ureteral stent d/t pyelonephritis/ kidney stone - landa catheter draining slightly cloudy, yellow urine. VSS. Pt drowsy but arousable to verbal. IVF from PACU hanging - LR @
125mL/hr through right hand. Assessment completed. Pt denied pain. Call leone within reach, bed in lowest position. Safety maintained.
[2024-07-12 06:02] LABS: % Basophils 0.2 % (0-2); % Eosinophils 0.1 % (0-6); % Immature Granulocytes 0.7 % (0-0.5); % Lymphocytes 2.8 % (20.5-51.1); % Monocytes 7.5 % (1.7-9.3); % Neutrophils 88.7 % (42.2-75.2); Absolute Immature Granulocytes 0.1 10^3/uL (0-0.05); Absolute Lymphocytes 0.4 10^3/uL (1.2-3.4); Absolute Monocytes 1.1 10^3/uL (0.1-0.6); Absolute Neutrophils 12.5 10^3/uL (1.4-6.5); Hematocrit 42.9 % (39.0-52.0); Hemoglobin 13.4 g/dL (13.0-18.0); Mean Corp Hgb Conc. 31.2 g/dL (33.0-37.0); Mean Corpuscular Hgb 29.3 pg (27.0-31.0); Mean Corpuscular Volume 93.9 fL (80.0-94.0); Mean Platelet Volume 9.1 fL (7.4-10.4); Nucleated Red Blood Cells % 0 % (-); Platelet Count 204 10^3/uL (130-400); Red Blood Cell Count 4.57 10^6/uL (4.70-6.10); Red Cell Dist. Width 13.7 % (11.5-14.5)
[2024-07-12 06:29] LABS: Blood Urea Nitrogen 35 mg/dl (9-20); Calcium 9.2 mg/dl (8.4-10.2); Carbon Dioxide 21 mmol/L (22-30); Chloride 103 mmol/L (98-107); Estimated Creatinine Clearance 38 ml/min; Glucose 121 mg/dl (70-99); Magnesium 2.2 mg/dl (1.6-2.3); Potassium 4.5 mmol/L (3.5-5.1); Sodium 139 mmol/L (135-145); eGFR 29.21
[2024-07-12 07:14] LABS: Hepatitis C Antibody Negative (Negative)
[2024-07-12] MEDS: CYMBALTA DELAYED RELEASE 120 MG PO (08:48)
[2024-07-12] MEDS: COLACE 100 MG PO ×2 (08:48→19:58)
[2024-07-12] MEDS: KLONOPIN 0.5 MG PO ×2 (08:48→19:58)
[2024-07-12] MEDS: LIPITOR 20 MG PO (08:48)
[2024-07-12] MEDS: STERILE WATER FOR INJECTION 10 ML IV ×2 (08:49→19:58)
[2024-07-12] MEDS: HEPARIN 5000 UNITS SC ×2 (08:49→16:12)
[2024-07-12] MEDS: MAXIPIME 1000 MG IV ×2 (08:50→19:56)
[2024-07-12] MEDS: WELLBUTRIN SR (12 hour sustained release) 200 MG PO (08:50)
--- NOTE | 2024-07-12 10:15 | W.PN.HOSP.TC ---
Today's Communication/Plan
-
OR today
Continue AB
Await Cx
Assessment / Plan
Assessment / Plan
63 y/o male with Fever and confusion with flank pain
CT scan abdomen and pelvis-8 mm stone in the distal left ureter resulting in mild left hydronephrosis. Additional bilateral nonobstructing nephrolithiasis. Cholelithiasis without evidence of cholecystitis. Diverticulosis.
CVS: S1-S2 normal
Chest: CTA B/L
Abdomen: Soft, left sided tenderness,Bowel sounds present
Extremities: No edema, normal pulses
# Sepsis likely urological source
Infected kidney stone
Continue Cefepime
Urology consulted for OR-cystoscopy
Blood cultures and urine cultures pending
Started on cefepime
If blood Cx positive will need ID eval given Spine surgery in April
Continue IV fluids
# TME due to above
# Acute kidney injury creatinine up to 2.5. Was 1.1 in the past likely secondary to above
Follow creatinine with IVF
# Mild hyponatremia-resolved
# Recent acute lumbar radiculopathy due to L5-S1 herniated disc status post right L5-S1 microdiscectomy by Dr. Cunningham April 262023-continue Flexeril as needed
# Hypertension-hold metoprolol, Norvasc. BP soft.
# Hyperlipidemia-continue atorvastatin
# Sleep apnea-oxygen at night
# Anxiety/depression-continue Wellbutrin, duloxetine, as needed clonazepam
# Asthma-NOS
# Obesity with a BMI of 35
# Cholelithiasis
# Diverticulosis
# Ex-smoker
# DVT prophylaxis-subcutaneous heparin
# Full code
Anticipated Discharge: 24 - 48 hours
Subjective/Interval History
-
Date of Service: July 12, 2024
Objective Data
-
Labs:
Laboratory Results
07/12/24 07/12/24 07/12/24
00:50 04:54 04:55
WBC 14.8 H 14.0 H
Hgb 14.3 13.4
Hct 43.9 42.9
Plt Count 206 204
Sodium 134 L 139
Potassium 4.6 4.5
Chloride 102 103
Carbon Dioxide 21 L 21 L
BUN 39 H 35 H
Creatinine 2.5 H 2.4 H
Glucose 120 H 121 H
Calcium 9.9 9.2
Total Bilirubin 1.4 H
AST 21
ALT 22
Alkaline Phosphatase 67
Vital Signs:
Vital Signs
Temp Pulse Resp BP Pulse Ox
98 F 76 20 115/58 96
07/12/24 07:30 07/12/24 07:30 07/12/24 07:30 07/12/24 07:30 07/12/24 07:30
I&O
07/11/24 07/12/24 07/13/24
06:59 06:59 06:59
Intake Total 1375 / 1375
Output Total 800 / 800
Balance 575 / 575
--- NOTE | 2024-07-12 13:39 | W.PN.URO.CBU ---
Today's Communication / Plan
-
Continue antibiotics
Remove landa
Assessment / Plan
-
63M with sepsis and L ureteral stone
s/p stent placement 07/12
- Continue IV antibiotics pending cultures
- afebrile and stable today
- Remove landa
- Outpatient follow up with Dr. Buck to remove stone - possible to keep current OR date this Monday or delay per Dr. Buck
Diagnosis
-
Date of Service: July 12, 2024
-
Patient Diagnosis:
Sepsis
Obstructing L ureteral stone
Pyuria
Post Op Day: s/p L stent 07/12
Subjective
-
tolerating stent and landa
Objective
-
Vital Signs
Temp Pulse Resp BP Pulse Ox
98 F 76 20 115/58 96
07/12/24 07:30 07/12/24 07:30 07/12/24 07:30 07/12/24 07:30 07/12/24 07:30
Intake and Output
07/11/24 07/12/24 07/13/24
06:59 06:59 06:59
Intake Total 1375 / 1375
Output Total 800 / 800
Balance 575 / 575
Intake:
Oral fluids 0 / 0
IV fluids (Total) 1375 / 1375
normosol 1000 / 1000
IV piggybacks 0 / 0
Output:
Urine, Landa 800 / 800
Laboratory Results
07/12/24 04:55
07/12/24 04:54
Physical Exam
-
General - well developed, well nourished, no acute distress
Chest - clear
Abdomen - soft, non-tender
- landa in place, slightly cloudy
[2024-07-13] MEDS: HEPARIN 5000 UNITS SC ×4 (01:30→23:02)
[2024-07-13 06:04] LABS: Hematocrit 40.4 % (39.0-52.0); Hemoglobin 13.6 g/dL (13.0-18.0); Mean Corp Hgb Conc. 33.7 g/dL (33.0-37.0); Mean Corpuscular Hgb 29.9 pg (27.0-31.0); Mean Corpuscular Volume 88.8 fL (80.0-94.0); Mean Platelet Volume 9.1 fL (7.4-10.4); Platelet Count 220 10^3/uL (130-400); Red Blood Cell Count 4.55 10^6/uL (4.70-6.10); Red Cell Dist. Width 13.4 % (11.5-14.5); White Blood Cell Count 15.3 10^3/uL (4.8-10.8)
[2024-07-13 06:21] LABS: Blood Urea Nitrogen 45 mg/dl (9-20); Carbon Dioxide 23 mmol/L (22-30); Chloride 108 mmol/L (98-107); Estimated Creatinine Clearance 46 ml/min; Glucose 122 mg/dl (70-99); Magnesium 2.5 mg/dl (1.6-2.3); Potassium 5.4 mmol/L (3.5-5.1); Sodium 142 mmol/L (135-145); eGFR 36.36
[2024-07-13 07:00] VITALS: BP 128/65
[2024-07-13] MEDS: STERILE WATER FOR INJECTION 10 ML IV ×2 (08:06→20:18)
[2024-07-13] MEDS: WELLBUTRIN SR (12 hour sustained release) 200 MG PO (08:06)
[2024-07-13] MEDS: COLACE 100 MG PO ×2 (08:06→20:20)
[2024-07-13] MEDS: CYMBALTA DELAYED RELEASE 120 MG PO (08:06)
[2024-07-13] MEDS: MAXIPIME 1000 MG IV ×2 (08:06→20:17)
[2024-07-13] MEDS: LIPITOR 20 MG PO (08:07)
[2024-07-13] MEDS: KLONOPIN 0.5 MG PO ×2 (08:13→20:20)
[2024-07-13] MEDS: TYLENOL 650 MG PO (11:02)
--- NOTE | 2024-07-13 11:20 | CM ---
Patient seen at bedside with present. Patient states that they live in a [facility] kitchen/worshop and there are 3 steps to each level. Patient state that he does currently use any DME but does have a walker at home. Patient PCP is
Bisi and they use the [facility] in [place]. Patient has not been driving in the past. Patient has used [facility] in the past and would like them again if possible. CM will continue to follow for discharge planning needs.
Plan; home with VN vs home with no needs.
--- NOTE | 2024-07-13 11:49 | W.PN.HOSP.TC ---
Today's Communication/Plan
-
Start diet
Continue with Cefepime and follow for final cultures
Repeat BMP in afternoon
Assessment / Plan
Assessment / Plan
#Sepsis likely secondary to Infected kidney stone
-Remains on IV cefepime with original cultures negative, repeat culture negative after 24 hours
-S/P OR on 07/12 for left sided stent placement, urology following
-Will continue with IV cefepime and follow final cultures, consider ID consult if positive due to recent spine surgery
-Trend CBC and temperature curve
-Will likely have stone retrieval and stent removal as out patient
#TME due to above
-improved
#Acute kidney injury
-On arrival creatinine up to 2.5 with baseline near 1.1
-likely secondary to obstructive uropathy as well as prerenal component
-Creatinine inproving following stent and fluids
-S/P landa catheter, no signs of retention
-Continue to trend BMP, avoid toxins such as NSAIDs
#Hyperkalemia
-Likely related to renal insufficiency, K 5.4 this morning
-Will repeat BMP in afternoon
-Consider lokelma, temporize for K > 6 or ECG changes
#Recent acute lumbar radiculopathy
-due to L5-S1 herniated disc
-status post right L5-S1 microdiscectomy by Dr. Cunningham April 26 2024
-continue Flexeril as needed
#Hypertension
-BP was soft on arrival
-Holding metoprolol, Norvasc
#Hyperlipidemia
-No ASCVD history
-Continue atorvastatin
#Sleep apnea
-oxygen at night
#Anxiety/depression
-continue Wellbutrin, duloxetine, as needed clonazepam
#Asthma-NOS
-Related to seasonal allergies
-Continue with home inhalers PRN
-No signs of flare
#Obesity with a BMI of 35
#Cholelithiasis
#Diverticulosis
#Ex-smoker
DVT prophylaxis: subcutaneous heparin
Diet: Regular
CODE STATUS: Full code
Anticipated Discharge: Today
Subjective/Interval History
-
Date of Service: July 13, 2024
Seen and examined the bedside. No acute events reported overnight. AFVSS this morning.
S/P OR yesterday for Left ureteral stent placement. S/P landa catheter, able to urinate without issue this morning
Denies acute complaints including chest pain, dyspnea.
Objective Data
-
Labs:
Laboratory Results
07/13/24 07/13/24
05:38 14:00
WBC 15.3 H
Hgb 13.6
Hct 40.4
Plt Count 220
Sodium 142 Pending
Potassium 5.4 H Pending
Chloride 108 H Pending
Carbon Dioxide 23 Pending
BUN 45 H Pending
Creatinine 2.0 H Pending
Glucose 122 H Pending
Calcium 10.0 Pending
Vital Signs:
Vital Signs
Temp Pulse Resp BP Pulse Ox
97.3 F 77 16 128/65 96
07/13/24 07:00 07/13/24 07:00 07/13/24 07:00 07/13/24 07:00 07/13/24 10:30
I&O
07/12/24 07/13/24 07/14/24
06:59 06:59 06:59
Intake Total 1375 / 1375 500 / 500
Output Total 800 / 800 1875 / 1875
Balance 575 / 575 -1375 / -1375
Review of Systems
-
History Source: Patient
All other systems: Reviewed and negative
Physical Exam
-
General: Well Nourished, No Apparent Distress and Comfortable
HEENT: Normocephalic, Atraumatic and Moist Mucous Membranes
Respiratory: Clear to Auscultation and Non Labored Respirations
Cardiac: Regular Rhythm and S1/S2; Negative Murmur
GI: Soft, Nontender, Nondistended and Normal Bowel Sounds
Musculoskeletal: No Clubbing, No Cyanosis and No Edema
Skin: Warm and Dry; Negative Rash
Neuro: AO x 3 and Nonfocal/Grossly Intact
Psych: Calm
Data Reviewed
-
Labs: Labs Reviewed by me and Discussed with Patient
--- NOTE | 2024-07-13 12:18 | W.PN.URO.CBU ---
Today's Communication / Plan
-
observe forfever etc
Assessment / Plan
-
63M with sepsis and L ureteral stone
s/p stent placement 07/12
observe in today as wbc up if fever chills thwen re cx cxr
-
- afebrile and stable today
- Remove landa
- Outpatient follow up with Dr. Buck to remove stone - possible to keep current OR date this Monday or delay per Dr. Buck
Diagnosis
-
Date of Service: July 13, 2024
-
Patient Diagnosis:
Post Op Day:
Patient Diagnosis:
Sepsis
Obstructing L ureteral stone
Pyuria
Post Op Day: s/p L stent 07/12
Subjective
-
left hand tremopr other arreola asx but wbxcc upto 15
Objective
-
Vital Signs
Temp Pulse Resp BP Pulse Ox
97.3 F 77 16 128/65 96
07/13/24 07:00 07/13/24 07:00 07/13/24 07:00 07/13/24 07:00 07/13/24 10:30
Intake and Output
07/12/24 07/13/24 07/14/24
06:59 06:59 06:59
Intake Total 1375 / 1375 500 / 500
Output Total 800 / 800 1875 / 1875
Balance 575 / 575 -1375 / -1375
Intake:
Oral fluids 0 / 0
IV fluids (Total) 1375 / 1375 500 / 500
normosol 1000 / 1000
IV piggybacks 0 / 0
Output:
Urine, Landa 800 / 800 1450 / 1450
Urine, Voided 425 / 425
Laboratory Results
07/13/24 05:38
Review of Systems
-
: Urgency
Physical Exam
-
General - well developed, well nourished, no acute distress
Chest - clear bilaterally
Abdomen - soft, non-tender, positive bowel sounds, no CVAT, no incisional pain or distention
Genitalia - normal
Rectal - normal
Skin - warm & dry with no rash
Neuro - AOx3, no motor deficits
Extremities - no clubbing, no cyanosis, no edema
Incision - clean, dry
Dressing - clean, dry, intact
Care Review
Data Reviewed
Discussed with: Nursing and Family
[2024-07-13 14:44] VITALS: BP 125/73; BP 150/95
[2024-07-13 14:57] LABS: Blood Urea Nitrogen 49 mg/dl (9-20); Calcium 9.9 mg/dl (8.4-10.2); Carbon Dioxide 23 mmol/L (22-30); Chloride 107 mmol/L (98-107); Estimated Creatinine Clearance 48 ml/min; Glucose 131 mg/dl (70-99); Sodium 140 mmol/L (135-145); eGFR 38.66
[2024-07-13 15:30] VITALS: BP 118/75
[2024-07-13] MEDS: SENOKOT-S 1 TABLET PO (20:24)
[2024-07-13] MEDS: ROXICODONE 5 MG PO (23:02)
[2024-07-13 23:26] VITALS: BP 140/76
[2024-07-14 04:55] LABS: % Basophils 0.2 % (0-2); % Eosinophils 0.4 % (0-6); % Immature Granulocytes 0.4 % (0-0.5); % Lymphocytes 20.6 % (20.5-51.1); % Monocytes 9.3 % (1.7-9.3); % Neutrophils 69.1 % (42.2-75.2); Absolute Monocytes 0.9 10^3/uL (0.1-0.6); Absolute Neutrophils 6.8 10^3/uL (1.4-6.5); Hematocrit 39.8 % (39.0-52.0); Mean Corp Hgb Conc. 32.7 g/dL (33.0-37.0); Mean Corpuscular Hgb 30.1 pg (27.0-31.0); Mean Corpuscular Volume 92.1 fL (80.0-94.0); Mean Platelet Volume 9.1 fL (7.4-10.4); Nucleated Red Blood Cells % 0 % (-); Platelet Count 227 10^3/uL (130-400); Red Blood Cell Count 4.32 10^6/uL (4.70-6.10); Red Cell Dist. Width 13.5 % (11.5-14.5); White Blood Cell Count 9.8 10^3/uL (4.8-10.8)
[2024-07-14 05:18] LABS: Blood Urea Nitrogen 50 mg/dl (9-20); Calcium 9.6 mg/dl (8.4-10.2); Carbon Dioxide 25 mmol/L (22-30); Chloride 108 mmol/L (98-107); Estimated Creatinine Clearance 48 ml/min; Glucose 96 mg/dl (70-99); Potassium 4.2 mmol/L (3.5-5.1); Sodium 142 mmol/L (135-145); eGFR 38.66
[2024-07-14 07:00] VITALS: BP 134/84
--- NOTE | 2024-07-14 08:50 | W.PN.URO.CBU ---
Today's Communication / Plan
-
ok for d/c
Assessment / Plan
-
63M with sepsis and L ureteral stone
s/p stent placement 07/12
wbc normslozed for d/c today
-
- afebrile and stable today
- Remove landa
- Outpatient follow up with Dr. Buck to remove stone - possible to keep current OR date this Monday or delay per Dr. Buck
Diagnosis
-
Date of Service: July 14, 2024
-
Patient Diagnosis:
Post Op Day:
Patient Diagnosis:
Post Op Day:
Patient Diagnosis:
Sepsis
Obstructing L ureteral stone
Pyuria
Post Op Day: s/p L stent 07/12
Subjective
-
feeling better
Objective
-
Vital Signs
Temp Pulse Resp BP Pulse Ox
97.7 F 82 18 134/84 97
07/14/24 07:00 07/14/24 07:00 07/14/24 07:00 07/14/24 07:00 07/14/24 07:00
Intake and Output
07/13/24 07/14/24 07/15/24
06:59 06:59 06:59
Intake Total 500 / 500 1600 / 1600
Output Total 1875 / 1875 260 / 260
Balance -1375 / -1375 1340 / 1340
Intake:
Oral fluids 1600 / 1600
IV fluids (Total) 500 / 500
Output:
Urine, Landa 1450 / 1450
Urine, Voided 425 / 425 260 / 260
Other:
Number of approximated MODERATE 3
amounts of urine
Number of approximated LARGE 2
amounts of urine
Laboratory Results
07/14/24 04:23
07/14/24 04:23
Review of Systems
-
Abdomen/GI: No Symptoms
: Frequency
Physical Exam
-
General - well developed, well nourished, no acute distress
Chest - clear bilaterally
Abdomen - soft, non-tender, positive bowel sounds, no CVAT, no incisional pain or distention
Genitalia - normal
Rectal - normal
Skin - warm & dry with no rash
Neuro - AOx3, no motor deficits
Extremities - no clubbing, no cyanosis, no edema
Incision - clean, dry
Dressing - clean, dry, intact
Care Review
Data Reviewed
Discussed with: Nursing
[2024-07-14] MEDS: MAXIPIME 1000 MG IV (08:51)
[2024-07-14] MEDS: STERILE WATER FOR INJECTION 10 ML IV (08:51)
[2024-07-14] MEDS: HEPARIN 5000 UNITS SC (08:52)
--- NOTE | 2024-07-14 08:55 | CM ---
[facility] accepted patient for follow up after discharge. CM will see to review IMM and forms pending possible discharge. CM will continue to follow for discharge planning needs.
Plan; home with and [facility]
[2024-07-14] MEDS: TYLENOL 650 MG PO (08:56)
[2024-07-14] MEDS: COLACE 100 MG PO (08:57)
[2024-07-14] MEDS: KLONOPIN 0.5 MG PO (08:57)
[2024-07-14] MEDS: WELLBUTRIN SR (12 hour sustained release) 200 MG PO (08:57)
[2024-07-14] MEDS: CYMBALTA DELAYED RELEASE 120 MG PO (08:57)
[2024-07-14] MEDS: LIPITOR 20 MG PO (08:58)
[2024-07-14] MEDS: NORVASC 5 MG PO (10:01)
[2024-07-14] MEDS: TOPROL XL 37.5 MG PO (10:01)
--- NOTE | 2024-07-14 10:21 | CM ---
Patient seen at bedside. IMM provided to patient for review. Patient wanted to review and sign form. CM will continue to follow for discharge planning needs.
Plan; home with [facility] to follow and supports
--- NOTE | 2024-07-14 12:48 | W.PN.HOSP.TC ---
Today's Communication/Plan
-
Transition to cefdinir to complete 14 days
BMP in 5 days as OP
Doscharge with urology follow-up
Assessment / Plan
Assessment / Plan
#Sepsis likely secondary to Infected kidney stone
-Remains on IV cefepime with original cultures negative, repeat culture negative after 24 hours
-S/P OR on 07/12 for left sided stent placement, urology following
-Will continue with IV cefepime and follow final cultures, consider ID consult if positive due to recent spine surgery
-Trend CBC and temperature curve
-Will likely have stone retrieval and stent removal as out patient
-Spoke with ID about oral antibiotic choice due to negative cultures. Stated cefdinir was equivalent choice though Fluoracaine alone acceptable as well
-Plan to discharge on cefdinir 300 mg twice daily to complete 14 days
#TME
-due to above
-Resolved
#Acute kidney injury
-On arrival creatinine up to 2.5 with baseline near 1.1
-likely secondary to obstructive uropathy as well as prerenal component
-Creatinine imnproving following stent and fluids
-S/P landa catheter, no signs of retention
-Continue to trend BMP, avoid toxins such as NSAIDs
-Creatinine down to 1.9 x2
-Will give Rx for BMP 5 days after discharge
#Hyperkalemia
-Resolved
#Recent acute lumbar radiculopathy
-due to L5-S1 herniated disc
-status post right L5-S1 microdiscectomy by Dr. Cunningham April 26 2024
-continue Flexeril as needed
#Hypertension
-BP was soft on arrival
-Holding metoprolol, Norvasc
#Hyperlipidemia
-No ASCVD history
-Continue atorvastatin
#Sleep apnea
-oxygen at night
#Anxiety/depression
-continue Wellbutrin, duloxetine, as needed clonazepam
#Asthma-NOS
-Related to seasonal allergies
-Continue with home inhalers PRN
-No signs of flare
#Obesity with a BMI of 35
#Cholelithiasis
#Diverticulosis
#Ex-smoker
DVT prophylaxis: subcutaneous heparin
Diet: Regular
CODE STATUS: Full code
Anticipated Discharge: Today
Subjective/Interval History
-
Date of Service: July 14, 2024
Seen and examined at the bedside. No acute events overnight. AFVSS this morning.
He states that he feels well today. Has some residual burning with urination though improving, no retention like symptoms.
Denies any acute complaints. Feels well and would like to leave the hospital
Objective Data
-
Labs:
Laboratory Results
07/14/24
04:23
WBC 9.8
Hgb 13.0
Hct 39.8
Plt Count 227
Sodium 142
Potassium 4.2
Chloride 108 H
Carbon Dioxide 25
BUN 50 H
Creatinine 1.9 H
Glucose 96
Calcium 9.6
Vital Signs:
Vital Signs
Temp Pulse Resp BP Pulse Ox
97.7 F 82 18 134/84 97
07/14/24 07:00 07/14/24 07:00 07/14/24 07:00 07/14/24 10:01 07/14/24 08:55
I&O
07/13/24 07/14/24 07/15/24
06:59 06:59 06:59
Intake Total 500 / 500 1600 / 1600
Output Total 1875 / 1875 260 / 260
Balance -1375 / -1375 1340 / 1340
Review of Systems
-
History Source: Patient
All other systems: Reviewed and negative
Physical Exam
-
General: Well Developed, No Apparent Distress, Comfortable and Obese
HEENT: Normocephalic, Atraumatic and Moist Mucous Membranes
Respiratory: Clear to Auscultation and Non Labored Respirations
Cardiac: Regular Rhythm and S1/S2; Negative Murmur, Rub or Gallop
GI: Soft, Nontender, Nondistended and Normal Bowel Sounds
Musculoskeletal: No Clubbing, No Cyanosis and No Edema
Skin: Warm, Dry and Normal Turgor; Negative Rash
Neuro: AO x 3 and Nonfocal/Grossly Intact
Psych: Calm
Data Reviewed
-
Labs: Labs Reviewed by me and Discussed with Patient
[2024-07-14 13:44] VITALS: BP 131/78
--- NOTE | 2024-07-14 13:58 | W.DCSUMMARY ---
Discharge Summary
Discharge Data
Date of Admission: 07/12/24
Date of Discharge: 07/14/24
-
Pending Results: No
Hospital Course
63-year-old male with BRENNAN on nightly oxygen, asthma, hypertension, hyperlipidemia, s/p spinal surgery that presented with dysuria and altered mental status. UA consistent with UTI. CT A/P showed obstructive uropathy with 7.5 mm left-sided ureteral
stone. Urology consulted and performed left ureteral stent placement. Patient was treated with IV cefepime empirically. Ultimately, cultures returned negative. Spoke with infectious disease who recommended transition to cefdinir empirically to
complete 14 days of antibiotics. Will follow-up as an outpatient with urology for stent and stone retrieval.
Patient did have acute kidney injury likely in the context of postrenal obstruction. Renal function improved with IV fluids and decompression of the left kidney. Victoria catheter was transiently placed, patient accomplished a trial of void while in
the hospital. Provided BMP for 5 days after discharge to recheck kidney function. Creatinine baseline 1.1, down to 1.9 by time of discharge
Discharge Plan
-
Patient Disposition: Home (Routine Discharge)
Discharge Diagnosis/Procedures: Infected Kidney stone
UTI
Condition: Good
Diet: No restrictions
Activity: As tolerated
Driving Restrictions: No driving for 24 hours
Bathing Restrictions: None
Blood Work: BMP in 5 days to recheck kidney function
Activity Restrictions/Additional Instructions:
Have labs taken 5 days after discharge at [facility] (per insurance)
Schedule appointment with your family doctor within 1 to 2 weeks of discharge from the hospital for routine posthospital follow-up
He will follow-up with urology in office. Referral provided below. Contact their office with questions
Instructions: Kidney stones in adults, Kidney stone diet
Referrals:
Rangel Buck MD [Active] - (the stone is still there You have a stent Expect blood in urine frequecy urgemcy and left flank discomfort the stone will be treated after thanksgiving Call when home [phone] buck ext 5 to
schedule stone surgery Call any time if questions fever chills etc)
Billie Shukla MD [Family Provider] -
Prescriptions:
New
cyclobenzaprine 10 mg Tablet
10 mg PO Q8HPRN PRN (Reason: muscle spasms) 30 Days Qty: 30 0RF
cefdinir 300 mg capsule
300 mg PO Q12H 12 Days Qty: 24 0RF
Continued
clonazepam 0.5 MG tablet
0.5 mg PO BID
duloxetine 60 MG capsule,delayed release(DR/EC)
120 mg PO DAILY
acetaminophen [Tylenol] 325 mg Tablet
650 mg PO Q4HPRN PRN (Reason: mild pain)
atorvastatin [Lipitor] 20 mg Tablet
20 mg PO DAILY
amlodipine 5 mg Tablet
5 mg PO HS
metoprolol succinate [Toprol XL] 25 mg Tablet Extended Release 24 Hr
37.5 mg PO DAILY
bupropion HCl [Wellbutrin SR] 200 mg Tablet Sustained-Release 12 Hr
200 mg PO DAILY
docusate sodium 100 mg Capsule
100 mg PO BID Qty: 0 0RF
albuterol sulfate 90 mcg/actuation Hfa Aerosol Inhaler
2 puff INHALATION QID PRN (Reason: asthma/allergies)
Discharge Orders:
Discharge Patient (As Directed); Ordered 07/14/24
Ordered By: Ramon Tinajero
Discharge Date and Time
Print Language: SOU[place]UDANESE
== END 2024-07-14 14:38 | disposition home health service (06) | DRG 854 ==
LOC: 2 SOUTH 02:47
PROVIDERS: Hospitalist; ADMITTING PHYSICIAN Internal Medicine; ATTENDING PHYSICIAN Internal Medicine; CONSULT PHYSICIAN Urology; EMERGENCY PHYSICIAN Student in an Organized Health Care Education/Training Program; FAMILY PHYSICIAN Family Medicine
PROC: 0T778DZ Dilation of Left Ureter with Intraluminal Device, Via Natural or Artificial Opening Endoscopic (ICD-10-PCS; 2024-07-12)
DX: A41.9 Sepsis, unspecified organism (principal); E87.1 Hypo-osmolality and hyponatremia; N13.6 Pyonephrosis; N20.2 Calculus of kidney with calculus of ureter; N17.9 Acute kidney failure, unspecified; E87.5 Hyperkalemia; I10 Essential (primary) hypertension; E78.00 Pure hypercholesterolemia, unspecified; F41.9 Anxiety disorder, unspecified; F32.A Depression, unspecified; J45.909 Unspecified asthma, uncomplicated; E66.9 Obesity, unspecified; Z68.35 Body mass index [BMI] 35.0-35.9, adult; K80.20 Calculus of gallbladder without cholecystitis without obstruction; K57.90 Diverticulosis of intestine, part unspecified, without perforation or abscess without bleeding; Z87.891 Personal history of nicotine dependence
CPT/HCPCS: 74176; 76000; 80048; 80053; 81003; 81015; 83735; 85025; 85027; 86803; 87040; 87086; 96361; 96365; 96375; 97116; 97162; 97530; 99291; A4300; C1769; C2617

== ENCOUNTER → 2024-07-15 15:55 | Outpatient (REF) | payer MEDICARE, SELFPAY | LOC: HWRCS 15:55 | PROVIDERS: ATTENDING PHYSICIAN Internal Medicine Cardiovascular Disease; FAMILY PHYSICIAN Family Medicine | DX: R55 Syncope and collapse (principal) | CPT/HCPCS: 93306 ==

== ENCOUNTER → 2024-07-19 14:28 | Outpatient (REF) | payer MEDICARE, SELFPAY ==
[2024-07-19 15:46] LABS: Amylase 40 U/L (30-110); Calcium 10.8 mg/dl (8.4-10.2); Lipase 49 U/L (23-300)
== END ==
LOC: REG 14:28
PROVIDERS: ATTENDING PHYSICIAN Physician Assistant
DX: R10.13 Epigastric pain (principal); E83.52 Hypercalcemia
CPT/HCPCS: 36415; 82150; 82310; 83690

== ENCOUNTER 2024-07-23 06:39 | Day surgery (SDC) | payer MEDICARE, SELFPAY ==
[2024-07-23] VITALS (8 sets, daily range): BP systolic 112–130; BP diastolic 67–73; BMI 37.1
[2024-07-23] MEDS: Pyridium 200 MG PO (17:08)
== END 2024-07-23 18:00 | disposition home or self-care (01) ==
LOC: SDS 06:39
PROVIDERS: ATTENDING PHYSICIAN Specialist
DX: N20.1 Calculus of ureter (principal); R31.0 Gross hematuria
CPT/HCPCS: 52356; 74018; 76000; 82365; A4300; C1894; C2617

== ENCOUNTER → 2024-10-01 13:39 | Outpatient (REF) | payer MEDICARE, SELFPAY ==
[2024-10-01 16:42] LABS: Blood Urea Nitrogen 26 mg/dl (9-20); Carbon Dioxide 23 mmol/L (22-30); Chloride 107 mmol/L (98-107); Glucose 143 mg/dl (70-99); Potassium 4.4 mmol/L (3.5-5.1); Sodium 141 mmol/L (135-145); eGFR > 60.00
== END ==
LOC: REG 13:39
PROVIDERS: ATTENDING PHYSICIAN Family Medicine
DX: I10 Essential (primary) hypertension (principal); R91.1 Solitary pulmonary nodule
CPT/HCPCS: 36415; 80048

== ENCOUNTER → 2024-10-07 12:31 | Outpatient (REF) | payer MEDICARE, SELFPAY | LOC: RAD 12:31 | PROVIDERS: FAMILY PHYSICIAN Nurse Practitioner Family | DX: R91.1 Solitary pulmonary nodule (principal) | CPT/HCPCS: 71260; Q9967 ==

== ENCOUNTER → 2025-02-05 17:06 | Outpatient (REF) | payer MEDICARE, SELFPAY | LOC: CLAB 17:06 | PROVIDERS: ATTENDING PHYSICIAN Otolaryngology | DX: J32.9 Chronic sinusitis, unspecified (principal) | CPT/HCPCS: 87070 ==

== ENCOUNTER → 2025-02-17 11:31 | Outpatient (REF) | payer MEDICARE, SELFPAY ==
[2025-02-18 22:38] LABS: SSA 52 (Ro)(ENA) Ab, IgG 1 AU/mL (0-40); SSA 60 (Ro)(ENA) Ab, IgG 0 AU/mL (0-40); SSB (La)(ENA) Ab, IgG 4 AU/mL (0-40)
== END ==
LOC: REG 11:31
PROVIDERS: ATTENDING PHYSICIAN Otolaryngology; FAMILY PHYSICIAN Family Medicine
DX: K11.7 Disturbances of salivary secretion (principal)
CPT/HCPCS: 36415; 86235

== ENCOUNTER → 2025-03-05 14:55 | Outpatient (REF) | payer MEDICARE, SELFPAY | LOC: RAD 14:55 | PROVIDERS: ATTENDING PHYSICIAN Physician Assistant; FAMILY PHYSICIAN Family Medicine | DX: M25.571 Pain in right ankle and joints of right foot (principal) | CPT/HCPCS: 73610 ==

== ENCOUNTER → 2025-07-28 14:02 | Outpatient (REF) | payer MEDICARE, SELFPAY | LOC: REG 14:02 | PROVIDERS: ATTENDING PHYSICIAN Family Medicine | DX: I50.42 Chronic combined systolic (congestive) and diastolic (congestive) heart failure (principal) | CPT/HCPCS: 71046 ==